=== PATIENT | female | born 1995 | race Caucasian/White ===

== ENCOUNTER → 2017-11-09 19:52 | Outpatient (CLI) | payer BC, SELFPAY ==
[2017-11-09 20:01] LABS: Microscopic, Urine URINE MICROSCOPIC (MICROSCOPIC)
[2017-11-09 20:30] LABS: Appearance,Urine CLOUDY (Clear); Bilirubin,Urine Negative (Negative); Blood, Urine Negative (Negative); Color,Urine YELLOW (Yellow); Glucose,Urine (UA) Negative (Negative); Ketones,Urine Negative (Negative); Leukocyte Esterase,Urine TRACE (Negative); Nitrate,Urine Negative (Negative); PH,Urine 7.5 (5.0-8.5); Protein,Urine Negative (Negative)
[2017-11-09 20:39] LABS: Basophils % 0.5 % (0.1-2.0); Eosinophils # 0.1 K/mm3 (0.0-0.4); Eosinophils % 1.7 % (0.1-12.0); Hematocrit 46.8 % (37.0-47.0); Hemoglobin 15.1 g/dL (12.2-16.2); Lymphocytes # 1.6 K/mm3 (0.7-4.5); Lymphocytes % 24.7 K/mm3 (10-50); Mean Corpuscular HGB Conc 32.4 g/dL (31.8-35.4); Mean Corpuscular Hemoglobin 32.7 pg (27.0-31.2); Mean Corpuscular Volume 101.1 fl (81-99); Mean Platelet Volume 9.3 fl (7.4-10.4); Monocytes # 0.4 K/mm3 (0.1-1.0); Monocytes % 6.6 % (1.7-9.3); Neutrophils # 4.4 K/mm3 (1.8-7.8); Neutrophils % 66.5 % (37.0-80.0); Platelet Count 272 K/mm3 (142-424); Red Blood Count 4.62 M/mm3 (4.20-5.40); Red Cell Distribution Width 13.8 % (11.5-17.5); White Blood Count 6.6 K/mm3 (4.5-13.0)
[2017-11-09 21:14] LABS: Erythrocyte Sedimentation Rate 6 mm/hr (0-20)
[2017-11-09 22:15] LABS: WBC,Urine Occasional #/hpf (0-3)
[2017-11-09 22:16] LABS: Amorphous Sediment,Urine 2+ /lpf; Bacteria,Urine 1+ /lpf
[2017-11-09 22:57] LABS: Alanine Aminotransferase 39 U/L (12-78); Albumin/Globulin Ratio 1.4 (1.1-1.8); Alkaline Phosphatase 65 U/L (46-116); Anion Gap 13.5 mEq/L (5-15); Aspartate Amino Transferase 15 U/L (15-37); Bilirubin,Total 0.3 mg/dL (0.2-1.0); Blood Urea Nitrogen 13 mg/dL (7-18); Calcium 8.7 mg/dL (8.5-10.1); Carbon Dioxide 28 mmol/L (21.0-32.0); Chloride 104 mmol/L (98-107); Creatinine,Serum 0.82 mg/dL (0.55-1.02); Estimated Glomerular Filt Rate 89 ml/min (>60); GFR (African American) 108 ML/MIN (>60); Globulin 2.8 gm/dl (1.3-3.2); Glucose 73 mg/dL (74-106); Potassium 4.5 mmoL/L (3.5-5.1); Sodium 141 mmol/L (136-145); Total Protein,Serum 6.8 gm/dL (6.4-8.2)
[2017-11-10 13:39] LABS: C-Reactive Protein < 0.2 mg/L (0.0-0.9)
== END ==
PROVIDERS: PCP Nurse Practitioner Family; Visit Provider Nurse Practitioner Family
DX: N39.0 Urinary tract infection, site not specified (principal); R52 Pain, unspecified
CPT/HCPCS: 36415; 80053; 81001; 85025; 85651; 86140; 86141

== ENCOUNTER 2018-01-09 14:27 | Emergency (ER) | payer BC, SELFPAY ==
[2018-01-09 14:38] VITALS: BP 132/103; PULSE 92; RESP 20; TEMP 36.6; O2SAT 97; BMI 38.0
--- NOTE | 2018-01-09 14:44 | HMH.EDUTC ---
[facility] [place] Disposition Clinical Impression: Viral upper respiratory illness Disposition: Home, Self-Care Condition on Discharge: Good Instructions: DI for Viral Upper Respiratory Infection -- Adult Additional Instructions: * No sign of bacterial infection. Likely viral. Virus can take 7-14 days to run their course * Nasal Saline to remove nasal drainage and help with nasal congestion. Hard to eat, drink, sleep with nasal congestion so important to keep nose cleaned out * Monitor Temp. FU if fever develops * Encourage fluids, water, gatorade, powerade, pedialyte if infant/toddler/child * warm salt water gargles * warm fluids * sore throat lozenges * sleep elevated * humidifier/vaporizer * STOP the [employer] brand cough medication if you rather take the bromfed. * Bromfed may cause drowsiness. Know how it effects you (or your child) before driving, caring for small children, or sending your child to school. No other antihistamines/allergy medications while taking bromfed. * * Your throat swab was sent for culture. Those results are typically sent to your primary care. Be sure to follow up in 2-3 days if no improvement so they can review those results and treat if necessary. If you don't have primary care, I recommend you get one but in the mean time, you will have to return to a walk in clinic. Prescriptions: Brompheniramine/Pseudoephed/Dm [Bromfed DM Cough Syrup 5mL] 10 ml PO QID PRN #240 ml PRN Reason: Cough Referrals: Anastasiia Baugh APRN [Primary Care Provider] - (Follow up IMMEDIATELY for new or worsening symptoms OR no noticeable improvement over the next 48-72 hours. 911 for difficulty breathing or swallowing.) Time of Disposition: 15:15 Medical Decision Making - Robin Inquiry Pt receiving controlled substance: No Vital Signs: 01/09/18 14:38 Temperature 97.9 F Temperature Source Temporal Artery Scan Pulse Rate [Brachial] 92 H Respiratory Rate 20 Blood Pressure [Right Arm] 132/103 Blood Pressure Mean [Right Arm] 112 Blood Pressure Position [Right Arm] Sitting 02 Sat by Pulse Oximetry 97 Oxygen Delivery Method Room Air - Lab Data Lab results reviewed: Yes: I reviewed the patient's lab results. Flu A neg Flu B neg Strep neg [facility] [place] HPI - General Stated complaint: sore throat cough Time Seen by Provider: 01/09/18 14:44 Mode of Arrival: Ambulatory Source of Information: Patient Limitations: No Limitations Description of Symptoms (Recalled from Triage Doc. by RN): RUNNY NOSE, COUGH, CHEST CONGESTION, SORE THROAT X 4 DAYS HEENT Symptoms (Recalled from RN notes): Yes Resp Symptoms (Recalled from RN notes): Yes Skin Symptoms (Recalled from RN notes): No MS Symptoms (Recalled from RN notes): No Functional Status (Recalled from RN notes): NA - History of Present Illness Provider Complaint: Here w/ mom due to cough, sore throat, nasal congestion. Started w/ rhinorrhea 5 days ago. Feeling better but reporting cough, ST and nasal congestion as bothersome . No fever, aches, chills. Unknown otc cough syrup from helped last night but made her too drowsy. Hasn't taken or tried anything else. No known sick contacts. - Related Data Home Medications Medication Instructions Recorded Confirmed norethindrone (contraceptive) 0.35 0.35 mg PO BID tab 10/30/17 mg tablet topiramate 25 mg tablet 50 mg PO BID 10/30/17 01/09/18 Previous Rx's Medication Instructions Recorded fluconazole 100 mg tablet 150 mg PO ONCE #1 tab 10/30/17 Brompheniramine/Pseudoephed/Dm 10 ml PO QID PRN #240 ml 01/09/18 [Bromfed DM Cough Syrup 5mL] Allergies Allergy/AdvReac Type Severity Reaction Status Date / Time amoxicillin [AMOXICILLIN] Allergy Unknown Unverified 10/03/17 15:05 cefixime [From SUPRAX] Allergy Unknown Unverified 10/03/17 15:05 latex [LATEX] Allergy Unknown Unverified 10/03/17 15:05 shellfish derived Allergy Unknown RASH/ITCHIN Unverified 10/03/17 15:05 [From SHELLFISH (FOOD/DRUG)] G shrimp [SHRIMP]
[2018-01-09 15:16] VITALS: BP 132/103; PULSE 92; RESP 20; TEMP 36.6; O2SAT 97
[2018-01-09 15:36] LABS: UTC Influenza A Antigen Negative (Negative); UTC Influenza B Antigen Negative (Negative); UTC Strep Screen (Rapid) Negative (Negative)
== END 2018-01-09 15:20 | disposition home or self-care (01) ==
PROVIDERS: Emergency Provider Nurse Practitioner Family; Family Provider Nurse Practitioner Family; PCP Nurse Practitioner Family
DX: J06.9 Acute upper respiratory infection, unspecified (principal); Z88.1 Allergy status to other antibiotic agents; Z91.040 Latex allergy status
CPT/HCPCS: 87804; 87880; 99202

== ENCOUNTER → 2018-01-24 15:47 | Outpatient (CLI) | payer BC, SELFPAY ==
[2018-01-24 18:56] LABS: HCG Qualitative, Serum Negative (Negative)
[2018-01-24 19:21] LABS: Free T4 (Free Thyroxine) 1.06 ng/dl (0.78-1.34); Thyroid Stimulating Hormone 2.31 uIU/ml (0.516-4.13)
[2018-01-26 10:15] LABS: Hep A Ab, IgM Negative (Negative); Hepatitis B Core Antibody IgM Negative (Negative); Hepatitis B Surface Antigen Negative (Negative)
[2018-01-26 17:41] LABS: HIV Screen 4th Generation wRfx Non Reactive (Non Reactive); Hepatitis C Antibody <0.1 s/co ratio (0.0-0.9); Rapid Plasma Reagin Ab Titer Non Reactive (NonRea<1:1)
[2018-01-26 17:42] LABS: HSV 2 IgG, Type Spec <0.91 index (0.00-0.90)
[2018-01-27 19:01] LABS: Neisseria gonorrhoeae, NAA Negative (Negative)
== END ==
PROVIDERS: Visit Provider Nurse Practitioner Family
DX: Z11.3 Encounter for screening for infections with a predominantly sexual mode of transmission (principal); F32.9 Major depressive disorder, single episode, unspecified; F41.9 Anxiety disorder, unspecified
CPT/HCPCS: 80074; 84439; 84443; 84703; 86592; 86695; 86703; 86790; 87491; 87591; G0432

== ENCOUNTER → 2018-02-15 15:28 | Outpatient (CLI) | payer BC, OTHER, SELFPAY ==
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
== END ==
PROVIDERS: PCP Nurse Practitioner Family; Visit Provider Nurse Practitioner Family
DX: S70.12XA Contusion of left thigh, initial encounter (principal); M79.605 Pain in left leg; V49.9XXA Car occupant (driver) (passenger) injured in unspecified traffic accident, initial encounter; Z86.718 Personal history of other venous thrombosis and embolism
CPT/HCPCS: 93970

== ENCOUNTER → 2018-03-29 14:59 | Outpatient (REF) | payer BC, SELFPAY ==
[2018-03-29 18:46] LABS: Amphetamine/Metha Screen,Urine Negative ng/mL (<1000); Barbiturates Screen,Urine Negative ng/mL (<200); Benzodiazepines Screen,Urine Negative ng/mL (200); Cannabinoid Screen,Urine Positive ng/mL (<50); Cocaine Screen,Urine Negative ng/g (<300); Methadone Screen,Urine Negative ng/mL (<300); Opiate Screen,Urine Negative ng/mL (<300); Phencyclidine Screen,Urine Negative ng/mL (<25)
== END ==
LOC: LAB 14:59
PROVIDERS: Visit Provider Nurse Practitioner Family
DX: Z79.899 Other long term (current) drug therapy (principal)
CPT/HCPCS: 80305

== ENCOUNTER 2018-04-16 13:57 | Outpatient (RCR) | payer OTHER, BC, SELFPAY ==
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
== END 2018-04-16 13:58 | disposition home or self-care (01) ==
LOC: PT 13:57
PROVIDERS: Family Provider Nurse Practitioner Family; PCP Emergency Medicine; Visit Provider Nurse Practitioner Family
DX: I89.0 Lymphedema, not elsewhere classified (principal); T14.8XXA Other injury of unspecified body region, initial encounter
CPT/HCPCS: 97140; 97162

== ENCOUNTER → 2019-05-07 17:40 | Outpatient (CLI) | payer BC, SELFPAY ==
--- NOTE | 2019-05-07 17:48 | XR_ITS ---
XR chest 2V HISTORY: ITS.REASON: tb screening ORDERING PHYSICIAN: Rupal Beverly APRN PATIENT AGE: 23 years COMPARISON: 02/27/2015. FINDINGS: The cardiomediastinal silhouette and pulmonary vascularity are within normal limits. The lungs are clear without infiltrates, suspicious nodules, or pleural effusions. No acute bony abnormalities. IMPRESSION: Negative chest, no acute finding
== END ==
PROVIDERS: PCP Nurse Practitioner Family; Visit Provider Nurse Practitioner Family
DX: Z00.00 Encounter for general adult medical examination without abnormal findings (principal)
CPT/HCPCS: 71046

== ENCOUNTER → 2020-05-01 17:04 | Outpatient (CLI) | payer BC, SELFPAY ==
[2020-05-01 18:07] LABS: Alanine Aminotransferase 24 U/L (12-78); Albumin Level 4.3 g/dl (3.5-5.0); Albumin/Globulin Ratio 1.6 (1.1-1.8); Alkaline Phosphatase 62 U/L (38-126); Anion Gap 12.7 mEq/L (5-15); Aspartate Amino Transferase 24 U/L (14-36); Basophils % 0.4 % (0.1-2.0); Bilirubin,Total 0.5 mg/dl (0.2-1.3); Blood Urea Nitrogen 9 mg/dl (7-17); Calcium 9.3 mg/dl (8.4-10.2); Carbon Dioxide 24 mmol/L (22.0-30.0); Chloride 108 mmol/L (98-107); Chol/HDL Ratio 2.6 (1-3.5); Cholesterol 166 mg/dl (140-200); Eosinophils # 0.1 K/mm3 (0.0-0.4); Eosinophils % 1.5 % (0.1-12.0); Estimated Glomerular Filt Rate 90 ml/min (>60); GFR (African American) 109 ML/MIN (>60); Globulin 2.7 g/dL (1.3-3.2); Glucose 99 mg/dl (74-100); HDL Cholesterol 64 mg/dl (40-60); Hematocrit 45.8 % (37.0-47.0); Hemoglobin 15.7 g/dL (12.2-16.2); Lymphocytes # 1.2 K/mm3 (0.7-4.5); Lymphocytes % 20.7 % (10-50); Mean Corpuscular HGB Conc 34.2 g/dL (31.8-35.4); Mean Corpuscular Hemoglobin 34.3 pg (27.0-31.2); Mean Corpuscular Volume 100.2 fl (81-99); Mean Platelet Volume 9.1 fl (7.4-10.4); Monocytes # 0.3 K/mm3 (0.1-1.0); Monocytes % 5.7 % (1.7-9.3); Neutrophils % 71.6 % (37.0-80.0); Platelet Count 281 K/mm3 (142-424); Potassium 4.7 mmoL/L (3.5-5.1); Red Blood Count 4.57 M/mm3 (4.20-5.40); Red Cell Distribution Width 13.9 % (11.5-17.5); Sodium 140 mmol/L (136-145); Triglycerides 78 mg/dl (30-150); VLDL Cholesterol 16 mg/dL (0-40); White Blood Count 5.6 K/mm3 (4.8-10.8)
[2020-05-01 18:19] LABS: Direct LDL Cholesterol 98.48 mg/dL (100-129)
[2020-05-01 18:25] LABS: T4 (Thyroxine) 8.1 ug/dl (5.53-11.0)
[2020-05-01 18:38] LABS: Thyroid Stimulating Hormone 1.36 uIU/mL (0.465-4.68)
[2020-05-01 18:40] LABS: Hemoglobin A1C 4.8 % (4.0-6.0)
[2020-05-03 10:02] LABS: Vitamin B12 346 pg/mL (232-1245)
[2020-05-07 12:32] LABS: 1,25 Dihydroxy Vitamin D 41 pg/mL (.); 1,25-Dihydroxy, Vitamin D-2 <10 pg/mL (.); 1,25-Dihydroxy, Vitamin D-3 41 pg/mL (.)
== END ==
PROVIDERS: Visit Provider Nurse Practitioner Family
DX: R53.83 Other fatigue (principal); E66.9 Obesity, unspecified
CPT/HCPCS: 80053; 80061; 82607; 82652; 83036; 84436; 84443; 85025

== ENCOUNTER 2020-09-25 12:31 | Emergency (ER) | payer BC, SELFPAY ==
[2020-09-25 12:35] VITALS: BP 152/92; PULSE 105; RESP 20; TEMP 36.9; O2SAT 98; BMI 44.9
--- NOTE | 2020-09-25 13:12 | HMH.EDUTC ---
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 Take tylenol for pain or fever. Return if you begin to have difficulty breathing. Follow up with your regular doctor. GO TO THE ER FOR ANY WORSENING SYMPTOMS Prescriptions: Cefdinir [Omnicef 300mg Capsule] 300 mg PO BID #20 cap Transmission Status: Received by [facility] predniSONE [Prednisone 20mg Tab] 20 mg PO BID 3 Days #6 tab Transmission Status: Received by [facility] Referrals: Waylon Gillespie MD [Primary Care Provider] - Forms: Work/School Release Time of Disposition: 13:30 Medical Decision Making - Medical Records Medical records reviewed: No: I reviewed the patient's medical records. - Robin Inquiry Pt receiving controlled substance: No Vital Signs: 09/25/20 12:35 09/25/20 13:34 Temperature 98.5 F 98.5 F Temperature Source Oral Pulse Rate 105 H Pulse Rate [Right Brachial] 105 H Respiratory Rate 20 20 Blood Pressure 152/92 H Blood Pressure [Right Arm] 152/92 H Blood Pressure Mean [Right Arm] 112 Blood Pressure Source [Right Arm] Automatic Cuff Blood Pressure Position [Right Arm] Sitting 02 Sat by Pulse Oximetry 98 Oxygen Delivery Method Room Air Orders (Tests/Meds): ED MEDICATIONS Discontinued Medications Generic Name Dose Route Start Last Admin Trade Name Freq PRN Reason Stop Dose Admin Ceftriaxone Sodium 1 gm 09/25/20 13:26 09/25/20 13:33 Ceftriaxone 1gm Vial IM 09/25/20 13:27 1 gm ONCE ONE Administration Protocol Ketorolac Tromethamine 60 mg 09/25/20 13:22 09/25/20 13:33 Ketorolac 60mg/2ml Vial IM 09/25/20 13:23 60 mg ONCE ONE Administration Lidocaine HCl 0 ml 09/25/20 13:26 09/25/20 13:33 Lidocaine 1% 5ml Pf Vial IM 09/25/20 13:27 2.1 ml ONCE ONE Administration [facility] [place] HPI - General Stated complaint: ear pain Time Seen by Provider: 09/25/20 13:13 Mode of Arrival: Ambulatory Source of Information: Patient, Parent(s) Limitations: No Limitations Description of Symptoms (Recalled from Triage Doc. by RN): PATIENT C/O RIGHT EAR PAIN SINCE THIS MORNING THAT RADIATES THROUGH HER JAW AND NECK. SHE REPORTS HAVING EAR TUBES PLACED IN NOVEMBER. ON MONDAY SHE GOT FLUID IN HER EAR AND FELT A POP ; EAR HAS BEEN ACHING SINCE THEN, BUT PAIN WAS A LOT WORSE THIS MORNING. ALSO STATES THERE WAS PINK/ORANGE FLUID FROM EAR WHEN SHE PUT A Q-TIP IN IT TODAY HEENT Symptoms (Recalled from RN notes): Yes Resp Symptoms (Recalled from RN notes): No Skin Symptoms (Recalled from RN notes): No MS Symptoms (Recalled from RN notes): No Functional Status (Recalled from RN notes): WNL - History of Present Illness Provider Complaint: She c/o 2 days of worsening right ear pain. - Related Data Home Medications Medication Instructions Recorded Confirmed etonogestrel 68 mg subdermal SUBDERMAL each 06/28/19 09/24/20 implant norethindrone acetate 5 mg tablet 5 mg PO DAILY tab 05/01/20 09/24/20 galcanezumab-gnlm 120 mg/mL mg SQ 07/10/20 09/24/20 subcutaneous pen injector metoclopramide HCl 10 mg tablet PO 07/10/20 09/24/20 Phentermine HCl 37.5 mg PO DAILY 09/25/20 09/25/20 Sertraline HCl [Zoloft] 100 mg PO DAILY 09/25/20 09/25/20 Previous Rx's Medication Instructions Recorded Cefdinir [Omnicef 300mg Capsule] 300 mg PO BID #20 cap 09/25/20 predniSONE [Prednisone 20mg 20 mg PO BID 3 Days #6 tab 09/25/20 Tab] Allergies Allergy/AdvReac Type Severity Reaction Status Date / Time amoxicillin [AMOXICILLIN] Allergy Unknown Verified 09/24/20 15:28 cefixime [From SUPRAX] Allergy Unk
[2020-09-25 13:34] VITALS: BP 152/92; PULSE 105; RESP 20; TEMP 36.9; O2SAT 98
== END 2020-09-25 13:46 | disposition home or self-care (01) ==
PROVIDERS: Emergency Provider Nurse Practitioner Family; PCP Emergency Medicine
DX: H66.13 Chronic tubotympanic suppurative otitis media, bilateral (principal); F41.9 Anxiety disorder, unspecified; Z79.899 Other long term (current) drug therapy
CPT/HCPCS: 96372; 99201

== ENCOUNTER → 2020-10-02 15:23 | Outpatient (CLI) | payer BC, SELFPAY ==
--- NOTE | 2020-10-02 15:29 | CA_ITS ---
APPROVED REPORT Left Lower Extremity Venous Study for DVT. Insurance Claims Adjuster: DIMA DoughertyT Indications Lower Extremity Pain: Left Lower Extremity Edema: Left DVT of Lower Extremity: PAIN,TIGHTNESS LT ANKLE,PRIOR DVT Risk Factors Prior Phlebitis/DVT Obesity Past History DVT : Vein Imaging CFV (L): compressive, spontaneous, phasic, augmentation FEM (L): compressive, spontaneous, phasic, augmentation POP (L): compressive, spontaneous, phasic, augmentation PTV (L): Non-Compressible, Thrombus GSV (L): Non-Compressible, Thrombus Peroneals (L):Compressible GAS (L): Compressible Findings Study suggests a DVT in the distal posterior tibial vein. Other deep veins are negative. Study suggests a SVT of the distal GSV. Critical Notification Critical Value: Yes Physician Notified Date: 10/02/2020 Time: 16:19 Physician Name: Lisset Lloyd Electronically signed by : Pantera Huston MD 10/06/2020 10:53:09
== END ==
PROVIDERS: PCP Nurse Practitioner Family; Visit Provider Nurse Practitioner Family
DX: M79.605 Pain in left leg (principal)
CPT/HCPCS: 93971

== ENCOUNTER → 2021-07-21 17:59 | Outpatient (CLI) | payer BC, SELFPAY ==
[2021-07-21 19:05] LABS: Alanine Aminotransferase 41 U/L (12-78); Albumin Level 3.7 g/dl (3.5-5.0); Albumin/Globulin Ratio 1.5 (1.1-1.8); Alkaline Phosphatase 69 U/L (38-126); Anion Gap 8.4 mEq/L (5-15); Aspartate Amino Transferase 34 U/L (14-36); Bilirubin,Total 0.3 mg/dl (0.2-1.3); Blood Urea Nitrogen 9 mg/dl (7-17); Calcium 8.7 mg/dl (8.4-10.2); Carbon Dioxide 27 mmol/L (22.0-30.0); Chloride 108 mmol/L (98-107); Cholesterol 181 mg/dl (140-200); Estimated Glomerular Filt Rate 124 ml/min (>60); GFR (African American) 150 ML/MIN (>60); Globulin 2.5 g/dL (1.3-3.2); Glucose 102 mg/dl (74-100); HDL Cholesterol 61 mg/dl (40-60); Potassium 4.4 mmoL/L (3.5-5.1); Sodium 139 mmol/L (136-145); Total Protein,Serum 6.2 g/dl (6.3-8.2); Triglycerides 125 mg/dl (30-150); VLDL Cholesterol 25 mg/dL (0-40)
[2021-07-21 19:07] LABS: Basophils % 0.7 % (0.1-2.0); Eosinophils # 0.1 K/mm3 (0.0-0.4); Eosinophils % 2.4 % (0.1-12.0); Hematocrit 44.1 % (37.0-47.0); Hemoglobin 14.5 g/dL (12.2-16.2); Lymphocytes # 1.4 K/mm3 (0.7-4.5); Lymphocytes % 24.6 % (10-50); Mean Corpuscular HGB Conc 32.9 g/dL (31.8-35.4); Mean Corpuscular Hemoglobin 33.7 pg (27.0-31.2); Mean Corpuscular Volume 102.3 fl (81-99); Mean Platelet Volume 10.2 fl (7.4-10.4); Monocytes # 0.3 K/mm3 (0.1-1.0); Monocytes % 4.5 % (1.7-9.3); Neutrophils # 3.7 K/mm3 (1.8-7.8); Neutrophils % 67.7 % (37.0-80.0); Platelet Count 293 K/mm3 (142-424); Red Blood Count 4.31 M/mm3 (4.20-5.40); Red Cell Distribution Width 13.9 % (11.5-17.5); White Blood Count 5.5 K/mm3 (4.8-10.8)
[2021-07-21 19:17] LABS: Direct LDL Cholesterol 89.59 mg/dL (100-129)
[2021-07-21 19:22] LABS: 25-OH Vitamin D, Total 17.5 ng/mL (30-100)
[2021-07-21 19:23] LABS: T4 (Thyroxine) 7.3 ug/dl (5.53-11.0)
[2021-07-21 19:36] LABS: Thyroid Stimulating Hormone 5.92 uIU/mL (0.465-4.68)
== END ==
PROVIDERS: Visit Provider Nurse Practitioner Family
DX: E66.01 Morbid (severe) obesity due to excess calories (principal); Z68.43 Body mass index [BMI] 50.0-59.9, adult; Z79.899 Other long term (current) drug therapy; E55.9 Vitamin D deficiency, unspecified
CPT/HCPCS: 80053; 80061; 82306; 84436; 84443; 85025

== ENCOUNTER 2021-10-11 16:57 | Emergency (ER) | payer BC, SELFPAY ==
[2021-10-11 18:20] VITALS: BP 146/92; PULSE 89; RESP 19; TEMP 36.9; O2SAT 98; BMI 50.3
--- NOTE | 2021-10-11 19:11 | HMH.EDUTC ---
[facility] [place] Disposition Clinical Impression: Viral syndrome Disposition: Home, Self-Care Condition on Discharge: Good Instructions: DI for Headache, Nausea and Vomiting-Adult Additional Instructions: *Monitor Temp, Over the counter Motrin or Tylenol as directed/as needed Tylenol every 4 hours and Motrin every 6 hours (as long as your family doctor has told you that you can take it) for fever or pain. and straight to ER if unable to lower temp less than 101.0 after medication given *Warm salt water gargles may help to soothe the throat *Throat Lozenges *Warm fluids like tea with honey may help to soothe the throat *Sleep elevated *Humidifier/Vaporizer You were tested for today for COVID19 your test result should be back in the next 24-48 hours, you may check for your results on the [facility] My Health Portal if you have trouble logging on or seeing your results you may call You was given a handout with instructions for Self Quarantine and Self isolation for while you wait on test results and what to do if they are positive If you are positive the Health Dept will be contacting you also Make sure to take your Vitamins Vit. C Vit D and Zinc if you can take them Follow up IMMEDIATELY for new or worsening symptoms or no Noticeable improvement over the next 48-72 hours. 911 for difficulty breathing or swallowing Prescriptions: Ondansetron [Zofran 4mg ODT] 4 mg PO TIDP PRN #12 tab PRN Reason: Vomiting Transmission Status: Pending to [facility] Referrals: Anastasiia Baugh APRN [Primary Care Provider] - As needed Forms: Work/School Release Time of Disposition: 19:27 Medical Decision Making - Robin Inquiry Pt receiving controlled substance: No Robin was queried for this patient: No Vital Signs: 10/11/21 18:20 Temperature 98.4 F Temperature Source Oral Pulse Rate [Right Brachial] 89 Respiratory Rate 19 Blood Pressure [Right Arm] 146/92 H Blood Pressure Mean [Right Arm] 110 Blood Pressure Source [Right Arm] Automatic Cuff Blood Pressure Position [Right Arm] Sitting 02 Sat by Pulse Oximetry 98 Oxygen Delivery Method Room Air - Lab Data Lab results reviewed: Yes: I reviewed the patient's lab results. Lab Results 10/11/21 19:15: Strep Scn Rapid Clinic Negative Orders (Tests/Meds): ORDERS Category Date Time Status Strep Screen Confirmation Stat Micro 10/11/21 19:15 Received [facility] [place] HPI - General Stated complaint: nausea, vomiting, headache Time Seen by Provider: 10/11/21 19:11 Mode of Arrival: Ambulatory Source of Information: Patient Limitations: No Limitations Description of Symptoms (Recalled from Triage Doc. by RN): PATIENT C/O NAUSEA, VOMITING AND HEADCHE X 3 DAYS HEENT Symptoms (Recalled from RN notes): Yes Resp Symptoms (Recalled from RN notes): No Skin Symptoms (Recalled from RN notes): No MS Symptoms (Recalled from RN notes): No Functional Status (Recalled from RN notes): WNL - History of Present Illness Provider Complaint: Patient states that she has been having scratchy throat, headache, N/V for about 3 days States today she was feeling worse so she came in to get checked - Related Data Home Medications Medication Instructions Recorded Confirmed etonogestrel 68 mg subdermal SUBDERMAL each 06/28/19 09/01/21 implant norethindrone acetate 5 mg tablet 5 mg PO DAILY tab 05/01/20 09/01/21 galcanezumab-gnlm 120 mg/mL mg SQ 07/10/20 09/01/21 subcutaneous pen injector metoclopramide HCl 10 mg tablet PO 07/10/20 09/01/21 Sertraline HCl [Zoloft] 100 mg PO DAILY 09/25/20 09/01/21 Previous Rx's Medication Instructions Recorded rivaroxaban 15 mg tablet 15 mg PO BID 21 Days #42 tab 10/02/20 rivaroxaban 20 mg tablet 20 mg PO DAILY #30 tab 10/02/20 ondansetron 8 mg disintegrating 8 mg PO Q8H PRN 5 Days #10 tab 10/12/20 tablet cholecalciferol (vitamin D3) 1,250 1,250 mcg PO WEEKLY #7 tab 07/26/21 mcg (50,000 unit) tablet cholecalciferol (vitamin D3) 50 50 mcg PO DAILY 30 Da
[2021-10-11 19:27] LABS: UTC Strep Screen (Rapid) Negative (Negative)
[2021-10-11 19:29] VITALS: BP 146/92; PULSE 89; RESP 19; TEMP 36.9; O2SAT 98
[2021-10-11 19:36] LABS: Adenovirus,PCR Not Detected (NotDetected); Bordetella Pertussis Not Detected (NotDetected); Chlamydophila Pneumoniae, PCR Not Detected (NotDetected); Coronavirus 19, PCR Not Detected (NotDetected); Coronavirus 229E Not Detected (NotDetected); Coronavirus NL63 Not Detected (NotDetected); Coronavirus OC43 Not Detected (NotDetected); Coronovirus HKU1,PCR Not Detected (NotDetected); Human Metapneumovirus Not Detected (NotDetected); Influenza A, PCR Not Detected (NotDetected); Influenza AH1, 2009 Not Detected (NotDetected); Influenza AH1, PCR Not Detected (NotDetected); Influenza AH3,PCR Not Detected (NotDetected); Influenza B, PCR Not Detected (NotDetected); Mycoplasma Pneumoniae, PCR Not Detected (NotDetected); Parainfluenza 1, PCR Not Detected (NotDetected); Parainfluenza 2, PCR Not Detected (NotDetected); Parainfluenza 3, PCR Not Detected (NotDetected); Parainfluenza 4, PCR Not Detected (NotDetected); Respiratory Syncytial Virus Not Detected (NotDetected); Rhinovirus/Enterovirus Not Detected (NotDetected)
== END 2021-10-11 19:34 | disposition home or self-care (01) ==
PROVIDERS: Emergency Provider Nurse Practitioner; PCP Nurse Practitioner Family
DX: B34.9 Viral infection, unspecified (principal); Z20.822 Contact with and (suspected) exposure to COVID-19; F41.9 Anxiety disorder, unspecified
CPT/HCPCS: 87581; 87632; 87798; 87880; 99203; C9803; G0463; U0003; U0005

== ENCOUNTER → 2021-11-04 16:26 | Outpatient (CLI) | payer BC, SELFPAY | PROVIDERS: Visit Provider Nurse Practitioner | DX: Z20.822 Contact with and (suspected) exposure to COVID-19 (principal) | CPT/HCPCS: C9803; U0003; U0005 ==

== ENCOUNTER 2021-11-08 09:21 | Emergency (ER) | payer BC, SELFPAY ==
[2021-11-08 12:52] VITALS: BP 219/110; PULSE 111; RESP 18; TEMP 36.8; O2SAT 100; BMI 52.1
--- NOTE | 2021-11-08 12:57 | HMH.EDUTC ---
[facility] [place] Disposition Clinical Impression: Migraine Qualifiers: Migraine type: unspecified Status migrainosus presence: without status migrainosus Intractability: not intractable Qualified Code(s): G43.909 - Migraine, unspecified, not intractable, without status migrainosus Disposition: Home, Self-Care Condition on Discharge: Good Instructions: Migraine -- Adult, DI for Migraine Additional Instructions: Go home and rest. Resume your oral medications as directed. Follow up with your regular doctor. GO TO THE ER FOR ANY WORSENING SYMPTOMS OR CONCERN, ESPECIALLY BOWEL OR BLADDER ISSUES, SADDLE AREA NUMBNESS, FEVER, ETC Prescriptions: Promethazine HCl [Phenergan 25mg tab] 25 mg PO Q6H PRN #15 tab PRN Reason: Nausea And Vomiting Transmission Status: Received by [facility] Referrals: Anastasiia Baugh APRN [Primary Care Provider] - Forms: Work/School Release Time of Disposition: 13:36 Medical Decision Making - Medical Records Medical records reviewed: No: I reviewed the patient's medical records. - Robin Inquiry Pt receiving controlled substance: No Vital Signs: 11/08/21 12:52 11/08/21 14:16 Temperature 98.2 F 98.2 F Temperature Source Oral Pulse Rate 90 Pulse Rate [Left] 111 H Respiratory Rate 18 18 Blood Pressure 157/85 H Blood Pressure [Right Arm] 219/110 H Blood Pressure Mean [Right Arm] 146 02 Sat by Pulse Oximetry 100 - Lab Data Lab results reviewed: Yes: I reviewed the patient's lab results. Lab Results 11/08/21 13:02: Influenza Type A Ag Negative, Influenza Type B Ag Negative Orders (Tests/Meds): ED MEDICATIONS Discontinued Medications Generic Name Dose Route Start Last Admin Trade Name Freq PRN Reason Stop Dose Admin Ketorolac Tromethamine 60 mg 11/08/21 13:12 11/08/21 13:19 Ketorolac 60mg/2ml Vial IM 11/08/21 13:13 60 mg ONCE ONE Administration Methylprednisolone Sodium Succinate 125 mg 11/08/21 13:12 11/08/21 13:19 Methylprednisolone Sod Succ 125mg Vial IM 11/08/21 13:13 125 mg ONCE ONE Administration Promethazine HCl 25 mg 11/08/21 13:14 11/08/21 13:19 Promethazine Hcl 25mg/Ml 1ml Vial IM 11/08/21 13:15 25 mg ONCE ONE Administration [facility] [place] HPI - General Stated complaint: migraine Time Seen by Provider: 11/08/21 12:57 - History of Present Illness Provider Complaint: She states that she has had a migraine headache for the past 2 days. She states that her current symptoms are worse than her normal migraine symptoms, but it feels essentially like a migraine to her. She denies that this is the worst headache of her life. - Related Data Home Medications Medication Instructions Recorded Confirmed etonogestrel 68 mg subdermal SUBDERMAL each 06/28/19 10/13/21 implant norethindrone acetate 5 mg tablet 5 mg PO DAILY tab 05/01/20 10/13/21 galcanezumab-gnlm 120 mg/mL mg SQ 07/10/20 10/13/21 subcutaneous pen injector metoclopramide HCl 10 mg tablet PO 07/10/20 10/13/21 Sertraline HCl [Zoloft] 100 mg PO DAILY 09/25/20 10/13/21 Previous Rx's Medication Instructions Recorded rivaroxaban 15 mg tablet 15 mg PO BID 21 Days #42 tab 10/02/20 rivaroxaban 20 mg tablet 20 mg PO DAILY #30 tab 10/02/20 cholecalciferol (vitamin D3) 1,250 1,250 mcg PO WEEKLY #7 tab 07/26/21 mcg (50,000 unit) tablet cholecalciferol (vitamin D3) 50 50 mcg PO DAILY 30 Days #30 cap 07/26/21 mcg (2,000 unit) capsule Ondansetron [Zofran 4mg ODT] 4 mg PO TIDP PRN #12 tab 10/11/21 phentermine 37.5 mg tablet 37.5 mg PO DAILY #30 tab 10/13/21 Promethazine HCl [Phenergan 25mg 25 mg PO Q6H PRN #15 tab 11/08/21 tab] Allergies Allergy/AdvReac Type Severity Reaction Status Date / Time amoxicillin [AMOXICILLIN] Allergy Unknown Verified 10/13/21 15:13 cefixime [From SUPRAX] Allergy Unknown Verified 10/13/21 15:13 latex [LATEX] Allergy Unknown Verified 10/13/21 15:13 shellfish derived Allergy Unknown RASH/ITCHIN Verif
[2021-11-08 13:02] LABS: UTC Influenza A Antigen Negative (Negative)
[2021-11-08 13:03] LABS: UTC Influenza B Antigen Negative (Negative)
[2021-11-08 14:16] VITALS: BP 157/85; PULSE 90; RESP 18; TEMP 36.8
== END 2021-11-08 14:18 | disposition home or self-care (01) ==
PROVIDERS: Emergency Provider Nurse Practitioner Family; PCP Nurse Practitioner Family
DX: G43.909 Migraine, unspecified, not intractable, without status migrainosus (principal); F41.9 Anxiety disorder, unspecified; Z20.822 Contact with and (suspected) exposure to COVID-19; Z91.040 Latex allergy status; Z79.899 Other long term (current) drug therapy
CPT/HCPCS: 87804; 96372; 99202; C9803; G0463; U0003; U0005

== ENCOUNTER 2021-11-13 12:54 | Emergency (ER) | payer BC, SELFPAY ==
[2021-11-13 13:10] VITALS: BP 161/114; PULSE 123; RESP 20; TEMP 36.9; O2SAT 98; BMI 52.1
[2021-11-13 13:28] LABS: UTC Strep Screen (Rapid) Negative (Negative)
--- NOTE | 2021-11-13 13:30 | HMH.EDUTC ---
[facility] [place] Disposition Clinical Impression: Exposure to COVID-19 virus Pharyngitis Qualifiers: Pharyngitis/tonsillitis etiology: unspecified etiology Qualified Code(s): J02.9 - Acute pharyngitis, unspecified Sinusitis Qualifiers: Sinusitis location: unspecified location Chronicity: acute Recurrence: non-recurrent Qualified Code(s): J01.90 - Acute sinusitis, unspecified Disposition: Home, Self-Care Condition on Discharge: Good Instructions: DI for Pharyngitis/Tonsillopharyngitis -- Adult, DI for Sinusitis, DI for COVID-19 (Suspected or Confirmed ), Preventing the Spread of Coronavirus Discharge Instructions Additional Instructions: Drink plenty of fluids. Take tylenol or ibuprofen for pain or fever. Take the medications as directed. Follow up with your regular doctor. GO TO THE ER FOR ANY WORSENING SYMPTOMS Quarantine until you know the results of your covid-19 test. Notify your school or workplace of your results and follow their instructions regarding return to work/school. Don't start the oral steroids until tomorrow, since you had the shot here today. Follow up with your primary care physician regarding your elevated blood pressure. It was high at your last visit too. Prescriptions: Benzonatate [Benzonatate 100mg cap] 100 mg PO TIDP PRN #30 cap PRN Reason: Cough Transmission Status: Received by [facility] methylPREDNISolone [Medrol] 4 mg PO DIRECTED 6 Days #21 packet Transmission Status: Received by [facility] guaiFENesin [Mucinex 600mg tablet] 1 - 2 tab PO BIDP PRN #30 tab PRN Reason: Congestion Transmission Status: Received by [facility] Azithromycin [Z-Mateo 250mg Tab*] 250 mg PO UD DOSE PK #6 tab Transmission Status: Received by [facility] Referrals: Anastasiia Baugh APRN [Primary Care Provider] - Forms: Work/School Release Time of Disposition: 14:05 Medical Decision Making - Medical Records Medical records reviewed: No: I reviewed the patient's medical records. - Robin Inquiry Pt receiving controlled substance: No Vital Signs: 11/13/21 13:10 11/13/21 14:44 Temperature 98.5 F 98.5 F Temperature Source Oral Pulse Rate 123 H Pulse Rate [Left] 123 H Respiratory Rate 20 20 Blood Pressure 161/114 H Blood Pressure [Right Arm] 161/114 H Blood Pressure Mean [Right Arm] 129 02 Sat by Pulse Oximetry 98 - Lab Data Lab results reviewed: Yes: I reviewed the patient's lab results. Lab Results 11/13/21 13:22: Strep Scn Rapid Clinic Negative 11/13/21 14:24: Chlamy pneumoniae PCR Not detected, Adenovirus (PCR) Not detected, B. pertussis DNA (PCR) Not detected, Coronavirus OC43 (PCR) Not detected, Coronavirus HKU1 (PCR) Not detected, Coronavirus 229E (PCR) Not detected, SARS-CoV-2 (PCR) Detected A, Coronavirus NL63 (PCR) Not detected, Human Metapneumovir PCR Not detected, Influenza A (H1) PCR Not detected, Influ A (H1N1/09) PCR Not detected, Influenza A (H3) PCR Not detected, Influenza Type A (PCR) Not detected, Influenza Type B (PCR) Not detected, M. pneumoniae (PCR) Not detected, Parainfluenza 1 (PCR) Not detected, Parainfluenza 2 (PCR) Not detected, Parainfluenza 3 (PCR) Not detected, Parainfluenza 4 (PCR) Not detected, RSV (PCR) Not detected, Entero/Rhino (PCR) Not detected Orders (Tests/Meds): ED MEDICATIONS Discontinued Medications Generic Name Dose Route Start Last Admin Trade Name Freq PRN Reason Stop Dose Admin Dexamethasone Sodium Phosphate 8 mg 11/13/21 14:08 11/13/21 14:39 Dexamethasone 4mg/Ml 1ml Vial IM 11/13/21 14:09 8 mg ONCE ONE Administration ORDERS Category Date Time Status Strep Screen Confirmation Stat Micro 11/13/21 13:22 Received [facility] [place] HPI - General Stated complaint: sore throat,cough,congestion Time Seen by Provider: 11/13/21 13:30 Mode of Arrival: Ambulatory Source of Information: Patient Limitations: No Limitations Description of Symptoms (Recalled from Triage Doc.
[2021-11-13 14:42] LABS: Adenovirus,PCR Not Detected (NotDetected); Bordetella Pertussis Not Detected (NotDetected); Chlamydophila Pneumoniae, PCR Not Detected (NotDetected); Coronavirus 229E Not Detected (NotDetected); Coronavirus NL63 Not Detected (NotDetected); Coronavirus OC43 Not Detected (NotDetected); Coronovirus HKU1,PCR Not Detected (NotDetected); Human Metapneumovirus Not Detected (NotDetected); Influenza A, PCR Not Detected (NotDetected); Influenza AH1, 2009 Not Detected (NotDetected); Influenza AH1, PCR Not Detected (NotDetected); Influenza AH3,PCR Not Detected (NotDetected); Influenza B, PCR Not Detected (NotDetected); Mycoplasma Pneumoniae, PCR Not Detected (NotDetected); Parainfluenza 1, PCR Not Detected (NotDetected); Parainfluenza 2, PCR Not Detected (NotDetected); Parainfluenza 3, PCR Not Detected (NotDetected); Parainfluenza 4, PCR Not Detected (NotDetected); Respiratory Syncytial Virus Not Detected (NotDetected); Rhinovirus/Enterovirus Not Detected (NotDetected)
[2021-11-13 14:44] VITALS: BP 161/114; PULSE 123; RESP 20; TEMP 36.9
[2021-11-13 16:01] LABS: Coronavirus 19, PCR Detected (NotDetected)
== END 2021-11-13 14:45 | disposition home or self-care (01) ==
PROVIDERS: Emergency Provider Nurse Practitioner Family; PCP Nurse Practitioner Family
DX: U07.1 COVID-19 (principal); J01.90 Acute sinusitis, unspecified; F41.9 Anxiety disorder, unspecified
CPT/HCPCS: 87581; 87632; 87798; 87880; 96372; 99202; C9803; G0463; U0003; U0005

== ENCOUNTER 2022-01-14 17:27 | Emergency (ER) | payer BC, SELFPAY ==
[2022-01-14 17:40] VITALS: BP 133/89; PULSE 90; RESP 17; TEMP 37.1; O2SAT 98; BMI 44.9
--- NOTE | 2022-01-14 18:33 | HMH.EDUTC ---
[facility] [place] Disposition Clinical Impression: Migraine Qualifiers: Migraine type: unspecified Status migrainosus presence: without status migrainosus Intractability: not intractable Qualified Code(s): G43.909 - Migraine, unspecified, not intractable, without status migrainosus Disposition: Home, Self-Care Condition on Discharge: Good Instructions: Migraine -- Adult, DI for Migraine Additional Instructions: Go home lay down and sleep off remainder of migraine headache Return if needed Straight to ER if any life threatening symptoms Referrals: Anastaisia Baugh APRN [Primary Care Provider] - As needed Forms: Work/School Release Time of Disposition: 19:15 Medical Decision Making - Robin Inquiry Pt receiving controlled substance: No Robin was queried for this patient: No Vital Signs: 01/14/22 17:40 01/14/22 19:02 Temperature 98.8 F 98.8 F Temperature Source Oral Pulse Rate 90 Pulse Rate [Right Brachial] 90 Respiratory Rate 17 17 Blood Pressure 133/89 Blood Pressure [Right Arm] 133/89 Blood Pressure Mean [Right Arm] 103 Blood Pressure Source [Right Arm] Automatic Cuff Blood Pressure Position [Right Arm] Sitting 02 Sat by Pulse Oximetry 98 Oxygen Delivery Method Room Air Orders (Tests/Meds): ED MEDICATIONS Discontinued Medications Generic Name Dose Route Start Last Admin Trade Name Freq PRN Reason Stop Dose Admin Diphenhydramine HCl 25 mg 01/14/22 18:50 01/14/22 18:57 Diphenhydramine 50mg/Ml Vial IM 01/14/22 18:51 25 mg ONCE ONE Administration Ketorolac Tromethamine 60 mg 01/14/22 18:50 01/14/22 18:57 Ketorolac 60mg/2ml Vial IM 01/14/22 18:51 60 mg ONCE ONE Administration Ondansetron HCl 4 mg 01/14/22 18:50 01/14/22 18:57 Ondansetron 4mg Odt SL 01/14/22 18:51 4 mg ONCE ONE Administration Medical Decision Narrative: Patient reports that she has bar in arm and denies [facility] [place] HPI - General Stated complaint: DURAN, Vomiting Time Seen by Provider: 01/14/22 18:33 Mode of Arrival: Ambulatory Source of Information: Patient, Parent(s) Limitations: No Limitations Description of Symptoms (Recalled from Triage Doc. by RN): PATIENT C/O MIGRAINE AND VOMITING SINCE YESTERDAY HEENT Symptoms (Recalled from RN notes): Yes Resp Symptoms (Recalled from RN notes): No Skin Symptoms (Recalled from RN notes): No MS Symptoms (Recalled from RN notes): No Functional Status (Recalled from RN notes): WNL - History of Present Illness Provider Complaint: Patient states that she has a history of Migraines States that she started with migraine headache yesterday and it has continued State that she has had N/V States that is typical with her headaches so she came in to get something to help with the pain States that she usually gets a few shots and it helps - Related Data Home Medications Medication Instructions Recorded Confirmed etonogestrel 68 mg subdermal SUBDERMAL each 06/28/19 12/02/21 implant metoclopramide HCl 10 mg tablet PO 07/10/20 12/02/21 rizatriptan 10 mg disintegrating 10 mg PO tab 12/02/21 12/02/21 tablet topiramate 50 mg tablet 50 mg PO tab 12/02/21 12/02/21 Previous Rx's Medication Instructions Recorded cholecalciferol (vitamin D3) 1,250 1,250 mcg PO WEEKLY #7 tab 07/26/21 mcg (50,000 unit) tablet cholecalciferol (vitamin D3) 50 50 mcg PO DAILY 30 Days #30 cap 07/26/21 mcg (2,000 unit) capsule buspirone 5 mg tablet 5 mg PO BID #60 tab 12/02/21 Allergies Allergy/AdvReac Type Severity Reaction Status Date / Time amoxicillin [AMOXICILLIN] Allergy Unknown Verified 12/02/21 09:24 cefixime [From SUPRAX] Allergy Unknown Verified 12/02/21 09:24 latex [LATEX] Allergy Unknown Verified 12/02/21 09:24 shellfish derived Allergy Unknown RASH/ITCHIN Verified 12/02/21 09:24 [From SHELLFISH (FOOD/DRUG)] G shrimp [SHRIMP] Allergy Unknown Verified 12/02/21 09:24 Penicillins Allergy Verified 01/14/22 18:02 - Worker's Comp Is
[2022-01-14 19:02] VITALS: BP 133/89; PULSE 90; RESP 17; TEMP 37.1; O2SAT 98
== END 2022-01-14 19:21 | disposition home or self-care (01) ==
PROVIDERS: Emergency Provider Nurse Practitioner; PCP Nurse Practitioner Family
DX: G43.909 Migraine, unspecified, not intractable, without status migrainosus (principal); I10 Essential (primary) hypertension; F41.9 Anxiety disorder, unspecified; Z88.0 Allergy status to penicillin
CPT/HCPCS: 96372; 99212; G0463

== ENCOUNTER 2022-03-17 19:41 | Emergency (ER) | payer BC, SELFPAY ==
[2022-03-17 19:45] VITALS: BP 138/91; PULSE 107; RESP 18; TEMP 36.8; O2SAT 100; BMI 50.3
--- NOTE | 2022-03-17 20:28 | HMH.EDUTC ---
[facility] [place] Disposition Clinical Impression: Migraine Qualifiers: Migraine type: unspecified Status migrainosus presence: without status migrainosus Intractability: not intractable Qualified Code(s): G43.909 - Migraine, unspecified, not intractable, without status migrainosus Disposition: Home, Self-Care Condition on Discharge: Good Instructions: Migraine -- Adult Additional Instructions: Go Home lay down and sleep off remainder of migraine headache Return if needed Follow up with your Family Doctor if no improvement or any worsening of symptoms Straight to ER if any life threatening symptoms Referrals: Anastasiia Baugh APRN [Primary Care Provider] - As needed Time of Disposition: 20:53 Medical Decision Making - Robin Inquiry Pt receiving controlled substance: No Robin was queried for this patient: No Vital Signs: 03/17/22 19:45 03/17/22 20:48 Temperature 98.2 F 98.2 F Temperature Source Oral Pulse Rate 107 H Pulse Rate [Left Brachial] 107 H Respiratory Rate 18 18 Blood Pressure 138/91 H Blood Pressure [Left Arm] 138/91 H Blood Pressure Mean [Left Arm] 106 Blood Pressure Source [Left Arm] Automatic Cuff Blood Pressure Position [Left Arm] Sitting 02 Sat by Pulse Oximetry 100 Oxygen Delivery Method Room Air - Lab Data Lab Results 03/17/22 20:23: Tst Clinic Negative Orders (Tests/Meds): ED MEDICATIONS Discontinued Medications Generic Name Dose Route Start Last Admin Trade Name Nancy PRN Reason Stop Dose Admin Ketorolac Tromethamine 60 mg 03/17/22 20:32 03/17/22 20:40 Ketorolac 60mg/2ml Vial IM 03/17/22 20:33 60 mg ONCE ONE Administration Methylprednisolone Sodium Succinate 125 mg 03/17/22 20:32 03/17/22 20:40 Methylprednisolone Sod Succ 125mg Vial IM 03/17/22 20:33 125 mg ONCE ONE Administration Promethazine HCl 12.5 mg 03/17/22 20:33 03/17/22 20:40 Promethazine Hcl 25mg/Ml 1ml Vial IM 03/17/22 20:34 12.5 mg ONCE ONE Administration Sodium Chloride 25 ml 03/17/22 20:33 03/17/22 20:45 Sodium Chloride 0.9% 25ml Bag IV 03/17/22 20:34 Not Given ONCE ONE Medical Decision Narrative: Patient denies states that she has bar in her arm states that benadryl and zofran upset her stomach last time does not want this for this migraine [facility] [place] HPI - General Stated complaint: DURAN Time Seen by Provider: 03/17/22 20:00 Mode of Arrival: Ambulatory Source of Information: Patient Limitations: No Limitations Description of Symptoms (Recalled from Triage Doc. by RN): PATIENT C/O MIGRAINE SINCE NOON TODAY HEENT Symptoms (Recalled from RN notes): Yes Resp Symptoms (Recalled from RN notes): No Skin Symptoms (Recalled from RN notes): No MS Symptoms (Recalled from RN notes): No Functional Status (Recalled from RN notes): WNL - History of Present Illness Provider Complaint: Patient states that she has migraine headaches States that for the last couple of days she has felt it coming on and tonight it was hurting worse so she came in to get a shot to help it States last time she got benadryl and zofran it tore her stomach up not wanting them - Related Data Home Medications Medication Instructions Recorded Confirmed etonogestrel 68 mg subdermal SUBDERMAL each 06/28/19 12/02/21 implant metoclopramide HCl 10 mg tablet PO 07/10/20 12/02/21 rizatriptan 10 mg disintegrating 10 mg PO tab 12/02/21 12/02/21 tablet topiramate 50 mg tablet 50 mg PO tab 12/02/21 12/02/21 Previous Rx's Medication Instructions Recorded cholecalciferol (vitamin D3) 1,250 1,250 mcg PO WEEKLY #7 tab 07/26/21 mcg (50,000 unit) tablet cholecalciferol (vitamin D3) 50 50 mcg PO DAILY 30 Days #30 cap 07/26/21 mcg (2,000 unit) capsule buspirone 5 mg tablet See Rx Instructions .ROUTE 03/15/22 .COMPLEX #60 tab Allergies Allergy/AdvReac Type Severity Reaction Status Date / Time amoxicillin [AMOXICILLIN] Allergy Unknown Verified 12/02/21 09:24
[2022-03-17 20:41] LABS: UTC Pregnancy Test, Urine Negative (Negative)
[2022-03-17 20:48] VITALS: BP 138/91; PULSE 107; RESP 18; TEMP 36.8; O2SAT 100
== END 2022-03-17 21:00 | disposition home or self-care (01) ==
PROVIDERS: Emergency Provider Nurse Practitioner; PCP Nurse Practitioner Family
DX: G43.909 Migraine, unspecified, not intractable, without status migrainosus (principal)
CPT/HCPCS: 81025; 96372; 99212; G0463

== ENCOUNTER 2022-03-19 16:36 | Emergency (ER) | payer BC, SELFPAY ==
--- NOTE | 2022-03-19 16:57 | HMH.EDABDPAI ---
ED Disposition Clinical Impression: Abdominal pain Disposition: Home, Self-Care Condition on Discharge: Good Instructions: DI for Acute Abdominal Pain Additional Instructions: Take the medications as prescribed as needed for abdominal cramping and nausea and consider adding simethicone throughout the day for gaseous distention. Prescriptions: Dicyclomine HCl [Bentyl 10mg capsule] 10 mg PO TID #9 cap Transmission Status: Pending to [facility] Ondansetron [Zofran 4mg ODT] 4 mg PO TIDP PRN 3 Days #9 tab PRN Reason: Nausea Transmission Status: Pending to [facility] Referrals: Anastasiia Baugh APRN [Primary Care Provider] - Time of Disposition: 19:35 - Critical Care Critical Care Time: No Attestation: On , the high probability of a clinically significant, sudden or life threatening deterioration of the following system(s) required my full and direct attention, intervention and personal management. The time I documented below is in addition to time spent performing reported procedures but includes the following listed in this critical care notation. Medical Decision Making - Medical Records Medical records reviewed: Yes: I reviewed the patient's medical records. - Robin Inquiry Pt receiving controlled substance: No Vital Signs: 03/19/22 16:58 03/19/22 17:00 Temperature 98 F Temperature Source Oral Pulse Rate 90 Pulse Rate [Radial] 101 H Respiratory Rate 20 21 Blood Pressure 142/89 H Blood Pressure [Right Arm] 142/89 H Blood Pressure Mean 99 Blood Pressure Mean [Right Arm] 106 Blood Pressure Position [Right Arm] Sitting 02 Sat by Pulse Oximetry 98 100 Oxygen Delivery Method Room Air - Lab Data Lab results reviewed: Yes: I reviewed the patient's lab results. Lab Results 03/19/22 17:57: WBC 8.1, RBC 4.62, Hgb 15.2, Hct 47.4 H, MCV 102.6 H, MCH 32.9 H, MCHC 32.1, RDW 13.4, Plt Count 303, MPV 9.3, Neut % (Auto) 69.7, Lymph % (Auto) 22.4, [place] % (Auto) 5.2, Eos % (Auto) 0.9, Baso % (Auto) 1.7, Neut # (Auto) 5.6, Lymph # (Auto) 1.8, [place] # (Auto) 0.4, Eos # (Auto) 0.1, Baso # (Auto) 0.1 03/19/22 17:57: Sodium 138, Potassium 3.7, Chloride 108 H, Carbon Dioxide 23, Anion Gap 10.7, BUN 17, Creatinine 0.80, Estimated Creat Clear 86, Estimated GFR 88, Est GFR ( Amer) 107, Glucose 88, Calcium 8.8, Total Bilirubin 0.4, AST 40 H, ALT 33, Alkaline Phosphatase 72, C-Reactive Protein 0.7, Total Protein 6.8, Albumin 4.2, Globulin 2.6, Albumin/Globulin Ratio 1.6, Lipase 66 03/19/22 17:57: Serum HCG, Qual Negative 03/19/22 18:03: Urine Color Yellow, Urine Appearance Sl cloudy, Urine pH 5.0, Ur Specific [place] >= 1.030, Urine Protein Negative, Urine Glucose (UA) Negative, Urine Ketones Negative, Urine Blood Negative, Urine Nitrate Negative, Urine Bilirubin Negative, Urine Urobilinogen 0.2, Ur Leukocyte Esterase Negative, Urine RBC None, Urine WBC 5-10, Ur Squamous Epith Cells 10-20, Urine Bacteria Trace Result diagrams: 03/19/22 17:57 03/19/22 17:57 Orders (Tests/Meds): ED MEDICATIONS Discontinued Medications Generic Name Dose Route Start Last Admin Trade Name Kenyonq PRN Reason Stop Dose Admin Belladonna Alkaloids 60 ml 03/19/22 17:33 03/19/22 18:22 Gi Cocktail 60ml Udc PO 03/19/22 17:34 60 ml ONCE ONE Administration Dicyclomine HCl 20 mg 03/19/22 17:33 03/19/22 17:50 Dicyclomine 10mg Capsule PO 03/19/22 17:34 20 mg ONCE ONE Administration Sodium Chloride 1,000 mls @ 999 mls/hr 03/19/22 17:45 03/19/22 18:22 Sod Chlor 0.9% 1000ml Bag IV 03/19/22 18:45 999 mls/hr .Q1H1M LOLLY Administration Ondansetron HCl 4 mg 03/19/22 17:33 03/19/22 18:23 Ondansetron 4mg/2ml Vial IV 03/19/22 17:34 4 mg ONCE ONE Administration - Radiology Data #1 Image(s): Abdomen Image Reviewed: Yes I have reviewed radiologist's interpretation Patient: Padmini Sampson MR#: [id number] : 1995 Acct:[id number] Age/Sex: 26
[2022-03-19 16:58] VITALS: BP 142/89; PULSE 101; RESP 20; TEMP 36.6; O2SAT 98; BMI 51.2
[2022-03-19 17:00] VITALS: BP 142/89; PULSE 90; RESP 21; O2SAT 100
--- NOTE | 2022-03-19 17:33 | XR_ITS ---
PROCEDURE INFORMATION: Exam: XR Abdomen Exam date and time: 03/19/2022 6:37 PM Age: 26 years old Clinical indication: Abdominal pain; Generalized; Prior surgery; Surgery date: 6+ months; Surgery type: Gallbladder TECHNIQUE: Imaging protocol: XR of the abdomen. Views: Frontal supine view of the abdomen. 1 View. COMPARISON: ABDPELW/O CT ABD PELVIS W/O CONTRAST 10/11/2016 12:04 AM FINDINGS: Gastrointestinal tract: Gaseously distended segments of small bowel may represent slow motility or mild ileus. Bones/joints: Unremarkable. IMPRESSION: Gaseously distended segments of small bowel may represent slow motility or mild ileus. Please exclude enterocolitis.
[2022-03-19 18:12] LABS: Appearance,Urine SL CLOUDY (Clear); Bilirubin,Urine Negative (Negative); Blood, Urine Negative (Negative); Color,Urine YELLOW (Yellow); Glucose,Urine (UA) Negative (Negative); Ketones,Urine Negative (Negative); Leukocyte Esterase,Urine Negative (Negative); Microscopic, Urine URINE MICROSCOPIC (MICROSCOPIC); Nitrate,Urine Negative (Negative); Protein,Urine Negative (Negative); Specific Gravity, Urine >= 1.030 (1.005-1.030); Urobilinogen,Urine 0.2 EU/dl (0.2)
[2022-03-19 18:14] LABS: Chloride 108 mmol/L (98-107); Potassium 3.7 mmoL/L (3.5-5.1); Sodium 138 mmol/L (136-145)
[2022-03-19 18:16] LABS: Alanine Aminotransferase 33 U/L (12-78); Aspartate Amino Transferase 40 U/L (14-36); Blood Urea Nitrogen 17 mg/dl (7-17); Creatinine Clearance Estimated 86 mL/min (50-200); Estimated Glomerular Filt Rate 88 ml/min (>60); GFR (African American) 107 ML/MIN (>60)
[2022-03-19 18:17] LABS: Albumin Level 4.2 g/dl (3.5-5.0); Albumin/Globulin Ratio 1.6 (1.1-1.8); Alkaline Phosphatase 72 U/L (38-126); Anion Gap 10.7 mEq/L (5-15); Bilirubin,Total 0.4 mg/dl (0.2-1.3); Calcium 8.8 mg/dl (8.4-10.2); Carbon Dioxide 23 mmol/L (22.0-30.0); Globulin 2.6 g/dL (1.3-3.2); Glucose 88 mg/dl (74-100); Lipase 66 U/L (23-300); Total Protein,Serum 6.8 g/dl (6.3-8.2)
[2022-03-19 18:18] LABS: Bacteria,Urine Trace /lpf
[2022-03-19 18:20] LABS: HCG Qualitative, Serum Negative (Negative)
[2022-03-19 18:22] LABS: C-Reactive Protein 0.7 mg/L (0-4)
[2022-03-19 18:31] LABS: Basophils # 0.1 K/mm3 (0-0.2); Basophils % 1.7 % (0.1-2.0); Eosinophils # 0.1 K/mm3 (0.0-0.4); Eosinophils % 0.9 % (0.1-12.0); Hematocrit 47.4 % (37.0-47.0); Hemoglobin 15.2 g/dL (12.2-16.2); Lymphocytes # 1.8 K/mm3 (0.7-4.5); Lymphocytes % 22.4 % (10-50); Mean Corpuscular HGB Conc 32.1 g/dL (31.8-35.4); Mean Corpuscular Hemoglobin 32.9 pg (27.0-31.2); Mean Corpuscular Volume 102.6 fl (81-99); Mean Platelet Volume 9.3 fl (7.4-10.4); Monocytes # 0.4 K/mm3 (0.1-1.0); Monocytes % 5.2 % (1.7-9.3); Neutrophils # 5.6 K/mm3 (1.8-7.8); Neutrophils % 69.7 % (37.0-80.0); Platelet Count 303 K/mm3 (142-424); Red Blood Count 4.62 M/mm3 (4.20-5.40); Red Cell Distribution Width 13.4 % (11.5-17.5); White Blood Count 8.1 K/mm3 (4.8-10.8)
[2022-03-19 19:57] VITALS: BP 144/71; PULSE 88; RESP 16; TEMP 36.7; O2SAT 97
== END 2022-03-19 20:02 | disposition home or self-care (01) ==
PROVIDERS: Emergency Provider Student in an Organized Health Care Education/Training Program; PCP Nurse Practitioner Family
DX: R10.9 Unspecified abdominal pain (principal); Z90.49 Acquired absence of other specified parts of digestive tract; Z88.1 Allergy status to other antibiotic agents; Z91.040 Latex allergy status; Z88.0 Allergy status to penicillin; Z91.013 Allergy to seafood
CPT/HCPCS: 74018; 80053; 81001; 83690; 84703; 85025; 86140; 96365; 96375; 99284; J2405

== ENCOUNTER 2022-04-28 19:40 | Emergency (ER) | payer BC, SELFPAY ==
[2022-04-28 19:50] VITALS: PULSE 91; RESP 21; TEMP 37; O2SAT 99; BMI 47.4
--- NOTE | 2022-04-28 20:21 | HMH.EDUTC ---
[facility] [place] Disposition Clinical Impression: Migraine Qualifiers: Migraine type: unspecified Status migrainosus presence: without status migrainosus Intractability: not intractable Qualified Code(s): G43.909 - Migraine, unspecified, not intractable, without status migrainosus Disposition: Home, Self-Care Condition on Discharge: Good Instructions: Corneal Abrasion, DI for Migraine Additional Instructions: Use ointment as prescribed in right eye if no improvement or any worsening of symptoms follow up with Eye Doctor for further evaluation and exam do not wear contacts until eye clear Go home and sleep off remainder of migraine headache Follow up with your Family Doctor if no improvement or any worsening of symptoms Recommend follow up with Neurology for further evaluation and discuss alternative treatments for migraines if you medication isnt working Straight to ER if any life threatening symptoms Prescriptions: Erythromycin Base [Erythromycin 1gm opth ointment] 1 applic OP Q4H 7 Days #2 gm Transmission Status: Pending to [facility] Referrals: Delia Marley PA [Primary Care Provider] - As needed Forms: Work/School Release Medical Decision Making - Robin Inquiry Pt receiving controlled substance: No Robin was queried for this patient: No Vital Signs: 04/28/22 19:50 04/28/22 20:35 Temperature 98.6 F 98.6 F Temperature Source Oral Pulse Rate 91 H Pulse Rate [Left] 91 H Respiratory Rate 21 21 Blood Pressure 0/0 L 02 Sat by Pulse Oximetry 99 Oxygen Delivery Method Room Air Orders (Tests/Meds): ED MEDICATIONS Discontinued Medications Generic Name Dose Route Start Last Admin Trade Name Nancy PRN Reason Stop Dose Admin Ketorolac Tromethamine 60 mg 04/28/22 20:22 04/28/22 20:30 Ketorolac 60mg/2ml Vial IM 04/28/22 20:23 60 mg ONCE ONE Administration Promethazine HCl 25 mg 04/28/22 20:22 04/28/22 20:30 Promethazine Hcl 25mg/Ml 1ml Vial IM 04/28/22 20:23 25 mg ONCE ONE Administration Sodium Chloride 25 ml 04/28/22 20:22 04/28/22 20:25 Sodium Chloride 0.9% 25ml Bag IV 04/28/22 20:23 Not Given ONCE ONE Medical Decision Narrative: Recommended eye exam with eye box and patient declined states that her migraine is bad and she wanted to get treatment for that and did not want an eye exam with the box due to light shining in eye Also discussed migraine coctail and recommended treatment for migraines patient states that she has adverse reactions to benadryl and it makes her have insomnia and does not want the SoluMedrol due to last time it upset her stomach States that she has taken the Toradol and Phenergan in the past and able to sleep off migraine wants that again today Patient states that she has taken azithromycin in the past without reactions or complications Patient states that medication is helping headache is much better [facility] [place] HPI - General Stated complaint: headache Time Seen by Provider: 04/28/22 19:55 Mode of Arrival: Ambulatory Source of Information: Patient Limitations: No Limitations Description of Symptoms (Recalled from Triage Doc. by RN): PATIENT C/O MIGRAINE AND REDNESS TO RIGHT EYE SINCE YESTERDAY HEENT Symptoms (Recalled from RN notes): Yes Resp Symptoms (Recalled from RN notes): No Skin Symptoms (Recalled from RN notes): No MS Symptoms (Recalled from RN notes): No Functional Status (Recalled from RN notes): WNL - History of Present Illness Provider Complaint: Patient states that she has a history of migraine headaches State that she has been having a migraine since yesterday and got worse today and she wanted to come in and get injections to help with migraine but didnt want the SoluMedrol or Benadryl with the migraine treatment this time because they upset her stomach States that also she was taking out her contact in her right eye and has been having some redness and irritation thinks she may have a small scratch or something on it - Relat
[2022-04-28 20:35] VITALS: BP 0/0; PULSE 91; RESP 21; TEMP 37; O2SAT 99
== END 2022-04-28 20:49 | disposition home or self-care (01) ==
PROVIDERS: Emergency Provider Nurse Practitioner; PCP Physician Assistant
DX: G43.909 Migraine, unspecified, not intractable, without status migrainosus (principal); I10 Essential (primary) hypertension
CPT/HCPCS: 96372; 99212; G0463

== ENCOUNTER → 2022-06-23 06:42 | Outpatient (CLI) | payer BC, SELFPAY | PROVIDERS: PCP Family Medicine; Visit Provider Nurse Practitioner Family | DX: E03.9 Hypothyroidism, unspecified (principal) | CPT/HCPCS: 84443 ==

== ENCOUNTER 2022-07-07 19:15 | Emergency (ER) | payer BC, SELFPAY ==
[2022-07-07 19:45] VITALS: BP 140/92; PULSE 75; RESP 18; TEMP 37; O2SAT 100; BMI 47.6
--- NOTE | 2022-07-07 20:18 | EXP.UTC ---
Discharge Plan Disposition Patient Disposition: Home, Self-Care Condition: Good Prescriptions Prescriptions: No Action metoclopramide HCl 10 mg tablet PO topiramate 50 mg tablet 50 mg PO rizatriptan 10 mg tablet,disintegrating 10 mg PO cholecalciferol (vitamin D3) 1,250 mcg (50,000 unit) tablet 1,250 mcg PO WEEKLY Qty: 7 1RF levothyroxine [Synthroid] 75 mcg tablet 75 mcg PO DAILY Qty: 30 2RF Nexplanon 68 mg implant SUBDERMAL cholecalciferol (vitamin D3) 50 mcg (2,000 unit) capsule 50 mcg PO DAILY 30 Days Qty: 30 3RF buspirone 5 mg tablet See Rx Instructions .ROUTE .COMPLEX Qty: 60 1RF Dose Instruction: TAKE 1 TABLET BY MOUTH TWICE DAILY MAY CAUSE DROWSINESS Rx Instructions: TAKE 1 TABLET BY MOUTH TWICE DAILY MAY CAUSE DROWSINESS erythromycin 1 GM ointment 1 applic OP Q4H 7 Days Qty: 2 0RF Rx Instructions: apply one ribbon in right eye as directed for 7 days Referrals Follow up/Referrals: Delia Marley PA [Primary Care Provider] - See instructions Activity Restrictions/Add. Instructions Additional Instructions/Restrictions: Go home and lay down and sleep off remainder of migraine headache Return if needed Follow up with your Family Doctor if no improvment or any worsening of symptoms Straight to ER if any life threatening symptoms Clinical Impressions Clinical Impression: Migraine Stand Alone Forms Stand Alone Forms: Work/School Release Instructions Patient Instructions: Migraine -- Adult, DI for Migraine Discharge ED Provider: Yaquelin Ocasio [facility] General Stated complaint: NA, MIGRANE, VOMITING Mode of Arrival: Ambulatory Source of Information: Patient Limitations: No Limitations Time Seen by Provider: 07/07/22 20:18 Description of Symptoms (Recalled from Triage Doc. by RN): PATIENT C/O MIGRAINE THAT STARTED THIS MORNING HEENT Symptoms (Recalled from RN notes): Yes Resp Symptoms (Recalled from RN notes): No Skin Symptoms (Recalled from RN notes): No MS Symptoms (Recalled from RN notes): No Functional Status (Recalled from RN notes): WNL History of Present Illness Provider Complaint: Patient state that she has a history of migraine headaches states that sometimes she has to come in and get injections to help get rid of the migraine States that it started this morning and has continued throughout the day so she came in to get something to help Related Data Home Medications Medication Instructions Recorded Confirmed etonogestrel 68 mg subdermal subdermal 06/28/19 06/23/22 implant (Nexplanon) metoclopramide HCl 10 mg tablet PO 07/10/20 06/23/22 rizatriptan 10 mg disintegrating 10 mg PO 12/02/21 06/23/22 tablet topiramate 50 mg tablet 50 mg PO 12/02/21 06/23/22 Previous Rx's Medication Instructions Recorded cholecalciferol (vitamin D3) 50 50 mcg PO DAILY 30 days #30 caps 07/26/21 mcg (2,000 unit) capsule buspirone 5 mg tablet See Rx Instructions .Route 03/15/22 .COMPLEX #60 tabs cholecalciferol (vitamin D3) 1,250 1,250 mcg PO WEEKLY #7 tabs 04/14/22 mcg (50,000 unit) tablet levothyroxine 75 mcg tablet 75 mcg PO DAILY #30 tabs 04/14/22 (Synthroid) erythromycin 5 mg/gram (0.5 %) eye 1 applic ophthalmic (eye) Q4H 7 04/28/22 ointment days #2 grams Allergies Allergy/AdvReac Type Severity Reaction Status Date / Time amoxicillin [AMOXICILLIN] Allergy Unknown Verified 06/23/22 15:31 cefixime [From SUPRAX] Allergy Unknown Verified 06/23/22 15:31 latex [LATEX] Allergy Unknown Verified 06/23/22 15:31 shellfish derived Allergy Unknown RASH/ITCHIN Verified 06/23/22 15:31 [From SHELLFISH (FOOD/DRUG)] G shrimp [SHRIMP] Allergy Unknown Verified 06/23/22 15:31 Penicillins Allergy Verified 06/23/22 15:31 Worker's Comp Is this a Worker's Comp case?: No PFSH [facility] Medical History (Updated 07/07/22 @ 20:31 by Yaquelin Ocasio APRN) Anxiety Hx of deep venous thrombosis Hypot
[2022-07-07 20:39] VITALS: BP 140/92; PULSE 75; RESP 18; TEMP 37; O2SAT 100
== END 2022-07-07 20:45 | disposition home or self-care (01) ==
PROVIDERS: Emergency Provider Nurse Practitioner; PCP Physician Assistant
DX: G43.909 Migraine, unspecified, not intractable, without status migrainosus (principal); R11.10 Vomiting, unspecified; E03.9 Hypothyroidism, unspecified; R91.1 Solitary pulmonary nodule; F41.9 Anxiety disorder, unspecified; Z79.3 Long term (current) use of hormonal contraceptives; Z79.899 Other long term (current) drug therapy; Z88.0 Allergy status to penicillin; Z88.1 Allergy status to other antibiotic agents; Z88.3 Allergy status to other anti-infective agents; Z88.8 Allergy status to other drugs, medicaments and biological substances; Z91.040 Latex allergy status; Z91.013 Allergy to seafood; Z86.718 Personal history of other venous thrombosis and embolism
CPT/HCPCS: 96372; 99213; G0463

== ENCOUNTER 2022-09-21 10:53 | Emergency (ER) | payer BC, SELFPAY ==
[2022-09-21 10:54] VITALS: BP 138/95; PULSE 105; RESP 18; TEMP 36.5; O2SAT 100; BMI 54.0
--- NOTE | 2022-09-21 11:08 | HMH.EDHA ---
Discharge Plan Disposition Patient Disposition: Home, Self-Care Condition: Good Prescriptions Prescriptions: No Action metoclopramide HCl 10 mg tablet PO topiramate 50 mg tablet 50 mg PO rizatriptan 10 mg tablet,disintegrating 10 mg PO cholecalciferol (vitamin D3) 1,250 mcg (50,000 unit) tablet 1,250 mcg PO WEEKLY Qty: 7 1RF Nexplanon 68 mg implant SUBDERMAL levothyroxine 100 mcg tablet 100 mcg PO methylprednisolone 4 mg tablets,dose pack See Rx Instructions PO PER PKG DIR Qty: 21 0RF Rx Instructions: PO PER PKG DIR azithromycin [Zithromax Z-Mateo] 250 mg tablet See Rx Instructions PO .COMPLEX Qty: 6 0RF Rx Instructions: For 250 mg dose pack: take 500 mg today (day 1), then 250 mg for 4 days (days 2-5) PO promethazine-DM 6.25-15 mg/5 mL syrup 5 ml PO Q4-6H PRN (Reason: cough) Qty: 118 0RF cholecalciferol (vitamin D3) 50 mcg (2,000 unit) capsule 50 mcg PO DAILY 30 Days Qty: 30 3RF buspirone 5 mg tablet See Rx Instructions .ROUTE .COMPLEX Qty: 60 1RF Dose Instruction: TAKE 1 TABLET BY MOUTH TWICE DAILY MAY CAUSE DROWSINESS Rx Instructions: TAKE 1 TABLET BY MOUTH TWICE DAILY MAY CAUSE DROWSINESS Referrals Follow up/Referrals: Delia Marley PA [Primary Care Provider] - See instructions Activity Restrictions/Add. Instructions Additional Instructions/Restrictions: Please keep your appointment with neurology next Monday due to your breakthrough migraines. Please take Tylenol and ibuprofen for pain control as well as your current abortive medication. If symptoms recur please return to the emergency department. Clinical Impressions Clinical Impression: Migraine Stand Alone Forms Stand Alone Forms: Work/School Release Instructions Patient Instructions: DI for Migraine Print Language Print Language: Wolof Discharge ED Provider: Kae Calabrese Headache HPI General Chief Complaint: Headache Stated Complaint: Migrane Time Seen by Provider: 09/21/22 11:05 Mode of Arrival: Ambulatory Source of Information: Patient Limitations: No Limitations Description of Symptoms (Recalled from ER Triage Doc. by RN): c/o migraine since last night, her home medicine did not work. Light and sound sensitivity with nausea. History of Present Illness HPI Narrative: Camilla has hx of migraines reports she began to have a migraine last night described as generalized, associated with photophobia and phonophobia. Similar to her usual headaches. Her abortive medication has been unsuccessful. Patient denies neck pain/meningeal pain. No fevers , cough, congestion or other infectious sx. no focal neurological deficits. Complaint: headache Onset (ago): day(s) Onset description: gradual Location: diffuse Severity: similar to previous episodes Severity scale (1-10): 9 Quality: aching Relieving factors: nothing Exacerbating factors: none Associated symptoms: photophobia and sensitivity to sound Related Data Home Medications Medication Instructions Recorded Confirmed etonogestrel 68 mg subdermal subdermal 06/28/19 09/05/22 implant (Nexplanon) metoclopramide HCl 10 mg tablet PO 07/10/20 09/05/22 rizatriptan 10 mg disintegrating 10 mg PO 12/02/21 09/05/22 tablet topiramate 50 mg tablet 50 mg PO 12/02/21 09/05/22 levothyroxine 100 mcg tablet 100 mcg PO 09/05/22 09/05/22 Previous Rx's Medication Instructions Recorded cholecalciferol (vitamin D3) 50 50 mcg PO DAILY 30 days #30 caps 07/26/21 mcg (2,000 unit) capsule buspirone 5 mg tablet See Rx Instructions .Route 03/15/22 .COMPLEX #60 tabs cholecalciferol (vitamin D3) 1,250 1,250 mcg PO WEEKLY #7 tabs 04/14/22 mcg (50,000 unit) tablet azithromycin 250 mg tablet See Rx Instructions PO .COMPLEX #6 09/05/22 (Zithromax Z-Mateo) tabs methylprednisolone 4 mg tablets in See Rx Instructions PO PER PKG DIR 09/05/22 a dose pack #21 tabs promethazine-DM 6.25 m
[2022-09-21 11:15] VITALS: PULSE 83; O2SAT 100
[2022-09-21 11:26] LABS: Coronavirus 19, PCR Not Detected (NotDetected); Influenza A, PCR Not Detected (NotDetected); Influenza B, PCR Not Detected (NotDetected)
[2022-09-21 11:30] VITALS: BP 135/91; PULSE 80; RESP 20; O2SAT 100
[2022-09-21 12:11] VITALS: BP 124/91; PULSE 79; RESP 18; O2SAT 100
[2022-09-21 12:19] VITALS: BP 129/87; PULSE 102; RESP 20; TEMP 36.5; O2SAT 100
== END 2022-09-21 12:21 | disposition home or self-care (01) ==
PROVIDERS: Emergency Provider Student in an Organized Health Care Education/Training Program; PCP Physician Assistant
DX: G43.909 Migraine, unspecified, not intractable, without status migrainosus (principal); Z79.899 Other long term (current) drug therapy; Z88.8 Allergy status to other drugs, medicaments and biological substances; Z88.1 Allergy status to other antibiotic agents; Z91.040 Latex allergy status; Z88.0 Allergy status to penicillin; Z91.013 Allergy to seafood
CPT/HCPCS: 96365; 96375; 99284; C9803; U0003; U0005

== ENCOUNTER 2022-09-28 18:25 | Emergency (ER) | payer BC, SELFPAY ==
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
[2022-09-28 19:01] VITALS: BP 145/97; PULSE 109; RESP 15; TEMP 36.9; O2SAT 100; BMI 54.0
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
[2022-09-28 20:53] VITALS: BP 140/78; PULSE 90; RESP 16; TEMP 36.9; O2SAT 100
== END 2022-09-28 20:56 | disposition home or self-care (01) ==
PROVIDERS: Emergency Provider Student in an Organized Health Care Education/Training Program; PCP Physician Assistant
DX: S93.601A Unspecified sprain of right foot, initial encounter (principal); G43.909 Migraine, unspecified, not intractable, without status migrainosus; E03.9 Hypothyroidism, unspecified; F41.9 Anxiety disorder, unspecified; Z79.3 Long term (current) use of hormonal contraceptives; Z79.899 Other long term (current) drug therapy; Z88.0 Allergy status to penicillin; Z88.1 Allergy status to other antibiotic agents; Z88.3 Allergy status to other anti-infective agents; Z91.040 Latex allergy status; Z91.013 Allergy to seafood; V49.9XXA Car occupant (driver) (passenger) injured in unspecified traffic accident, initial encounter
CPT/HCPCS: 73630; 99283

== ENCOUNTER 2022-09-29 15:51 | Outpatient (RCR) | payer BC, SELFPAY | END 2022-09-29 16:30 | disposition home or self-care (01) | LOC: PT 15:51 | PROVIDERS: Visit Provider Orthopaedic Surgery | DX: M79.671 Pain in right foot (principal); S92.401K Displaced unspecified fracture of right great toe, subsequent encounter for fracture with nonunion ==

== ENCOUNTER → 2022-10-11 09:37 | Outpatient (CLI) | payer BC, SELFPAY ==
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
== END ==
PROVIDERS: PCP Physician Assistant; Visit Provider Orthopaedic Surgery
DX: S93.601A Unspecified sprain of right foot, initial encounter (principal)
CPT/HCPCS: 73630

== ENCOUNTER → 2022-10-27 13:38 | Outpatient (CLI) | payer BC, SELFPAY ==
--- NOTE | 2022-10-27 13:44 | XR_ITS ---
FINAL REPORT CLINICAL HISTORY: great toe follow up COMPARISON: October 11, 2022 FINDINGS: RIGHT FOOT Three views of the right foot demonstrate no acute fracture or dislocation. The joint spaces are preserved. There is a stable chronic calcification adjacent to the proximal 5th metatarsal. The soft tissues are unremarkable. IMPRESSION: No acute bony abnormality. Reviewed, Interpreted and Dictated by Emilio Urias III, MD Transcribed by Marcelina Cleary Authenticated and . [facility]
== END ==
PROVIDERS: PCP Physician Assistant; Visit Provider Orthopaedic Surgery
DX: S97.111A Crushing injury of right great toe, initial encounter (principal)
CPT/HCPCS: 73630

== ENCOUNTER 2023-03-28 10:55 | Emergency (ER) | payer BC, SELFPAY ==
[2023-03-28 10:55] VITALS: BP 157/114; PULSE 111; RESP 16; TEMP 37; O2SAT 100; BMI 53.4
--- NOTE | 2023-03-28 11:37 | HMH.EDGENADL ---
Discharge Plan Disposition Patient Disposition: Home, Self-Care Condition: Good Chief Complaint: Headache Prescriptions Prescriptions: No Action metoclopramide HCl 10 mg tablet PO topiramate 50 mg tablet 50 mg PO rizatriptan 10 mg tablet,disintegrating 10 mg PO cholecalciferol (vitamin D3) 1,250 mcg (50,000 unit) tablet 1,250 mcg PO WEEKLY Qty: 7 1RF Nexplanon 68 mg implant SUBDERMAL levothyroxine 100 mcg tablet 100 mcg PO methylprednisolone 4 mg tablets,dose pack See Rx Instructions PO PER PKG DIR Qty: 21 0RF Rx Instructions: PO PER PKG DIR cholecalciferol (vitamin D3) 50 mcg (2,000 unit) capsule 50 mcg PO DAILY 30 Days Qty: 30 3RF buspirone 5 mg tablet See Rx Instructions .ROUTE .COMPLEX Qty: 60 1RF Dose Instruction: TAKE 1 TABLET BY MOUTH TWICE DAILY MAY CAUSE DROWSINESS Rx Instructions: TAKE 1 TABLET BY MOUTH TWICE DAILY MAY CAUSE DROWSINESS Referrals Follow up/Referrals: Delia Marley PA [Primary Care Provider] - See instructions Clinical Impressions Clinical Impression: Migraine Instructions Patient Instructions: DI for Migraine Discharge ED Provider: Davi Rojas General Adult HPI General Chief complaint: Headache Stated complaint: Headache Time Seen by Provider: 03/28/23 11:56 Mode of Arrival: Ambulatory Source of Information: Patient Limitations: No Limitations Description of Symptoms (Recalled from ER Triage Doc. by RN): Pt reports migraine x2 days. Reports light senstivity, n/v, and dizzy at times. Pt reports hx of migraines, states similar symptoms with previous migraines. History of Present Illness HPI narrative: This is a 27-year-old white female with a history of chronic intermittent migraines who began developing a migraine 2 days ago the headache was right-sided associated with scintillating scotoma and photophobia and phonophobia. Patient states that this was like her typical migraine. Patient tried a variety of home medications including Maxalt Ubrelvy ibuprofen all of which relieved the headache temporarily but then it reoccurred after couple hours. The headache was not sudden severe and not the worst headache of her life. Related Data Home Medications Medication Instructions Recorded Confirmed etonogestrel 68 mg subdermal subdermal 06/28/19 10/27/22 implant (Nexplanon) metoclopramide HCl 10 mg tablet PO 07/10/20 10/27/22 rizatriptan 10 mg disintegrating 10 mg PO 12/02/21 10/27/22 tablet topiramate 50 mg tablet 50 mg PO 12/02/21 10/27/22 levothyroxine 100 mcg tablet 100 mcg PO 09/05/22 10/27/22 Previous Rx's Medication Instructions Recorded cholecalciferol (vitamin D3) 50 50 mcg PO DAILY 30 days #30 caps 07/26/21 mcg (2,000 unit) capsule buspirone 5 mg tablet See Rx Instructions .Route 03/15/22 .COMPLEX #60 tabs cholecalciferol (vitamin D3) 1,250 1,250 mcg PO WEEKLY #7 tabs 04/14/22 mcg (50,000 unit) tablet methylprednisolone 4 mg tablets in See Rx Instructions PO PER PKG DIR 09/05/22 a dose pack #21 tabs Allergies Allergy/AdvReac Type Severity Reaction Status Date / Time amoxicillin [AMOXICILLIN] Allergy Unknown Verified 10/27/22 14:44 cefixime [From SUPRAX] Allergy Unknown Verified 10/27/22 14:44 latex [LATEX] Allergy Unknown Verified 10/27/22 14:44 shellfish derived Allergy Unknown RASH/ITCHIN Verified 10/27/22 14:44 [From SHELLFISH (FOOD/DRUG)] G shrimp [SHRIMP] Allergy Unknown Verified 10/27/22 14:44 Penicillins Allergy Verified 10/27/22 14:44 [facility] Disclaimer: The information contained in this section may have been updated after the patient was seen, as this information can be updated by other users. Medical History Anxiety Hx of deep venous thrombosis Hypothyroidism Lung nodules Migraine Screen for STD (sexually transmitted disease) Surgical History (Revie
--- NOTE | 2023-03-28 12:46 | PC.NURSE ---
Mother brought patient a sausage and biscuit from [employer] that she was able to eat and keep down. No complaints or needs at this time.
[2023-03-28 13:06] VITALS: BP 145/78; PULSE 80; RESP 16; TEMP 36.7
== END 2023-03-28 13:07 | disposition home or self-care (01) ==
PROVIDERS: Emergency Provider Emergency Medicine; PCP Physician Assistant
DX: G43.909 Migraine, unspecified, not intractable, without status migrainosus (principal); R11.2 Nausea with vomiting, unspecified; R42 Dizziness and giddiness; F41.9 Anxiety disorder, unspecified; E03.9 Hypothyroidism, unspecified
CPT/HCPCS: 96361; 96374; 96375; 99284

== ENCOUNTER 2023-08-05 02:08 | Emergency (ER) | payer BC, SELFPAY ==
[2023-08-05] VITALS (7 sets, daily range): BP systolic 119–127; BP diastolic 86–89; PULSE 91–136; RESP 11–20; TEMP 36.8–37.4; O2SAT 96–100; BMI 51.2
--- NOTE | 2023-08-05 02:07 | ECG_ITS ---
APPROVED REPORT Exam: Resting ECG HR:132 bpm ECG Measurements Heart Rate 132 AXES AK 149 P 60 QRSd 75 QRS 59 QT 298 T 18 QTc 376 Conclusion SINUS TACHYCARDIA ABNORMAL RHYTHM ECG UNCONFIRMED REPORT Electronically signed by : Brandt Mueller MD 08/05/2023 10:35:39
--- NOTE | 2023-08-05 02:09 | CT_ITS ---
PROCEDURE INFORMATION: Exam: CTA Chest With Contrast Exam date and time: 08/05/2023 2:56 AM Age: 27 years old Clinical indication: Pain; Chest pressure; Additional info: Chest pain TECHNIQUE: Imaging protocol: Computed tomographic angiography of the chest with contrast. Exam focused on the arteries. 3D rendering (Not supervised by radiologist): MIP and/or 3D reconstructed images were created by the technologist. Radiation optimization: All CT scans at this facility use at least one of these dose optimization techniques: automated exposure control; mA and/or kV adjustment per patient size (includes targeted exams where dose is matched to clinical indication); or iterative reconstruction. Contrast material: ISOVUE; Contrast volume: 70 ml; Contrast route: INTRAVENOUS (IV); REPORTING DATA: Count of CT and Cardiac NM exams in prior 12 months: This patient has received 0 known CTs and 0 known cardiac nuclear medicine studies in the 12 months prior to the current study. COMPARISON: [facility] CT angio chest 02/22/2018 12:45 PM FINDINGS: Pulmonary arteries: Normal. No pulmonary emboli. Aorta: Unremarkable. No aortic aneurysm. No aortic dissection. Lungs: Stable 6 mm posterior right lung base nodule axial image 81. Pleural spaces: Unremarkable. No pneumothorax. No pleural effusion. Heart: Unremarkable. No cardiomegaly. No pericardial effusion. Lymph nodes: Unremarkable. No enlarged lymph nodes. Bones/joints: Unremarkable. No acute fracture. Soft tissues: Unremarkable. IMPRESSION: 1. No acute findings. No pulmonary embolus. 2. Stable 6 mm right lower lobe nodule. No follow-up is recommended.
--- NOTE | 2023-08-05 02:12 | PC.NURSE ---
in room talking with patient at this time.
[2023-08-05 02:17] LABS: Basophils % 0.3 % (0.1-2.0); Eosinophils # 0.1 K/mm3 (0.0-0.4); Hematocrit 41.5 % (37.0-47.0); Hemoglobin 14.1 g/dL (12.2-16.2); Lymphocytes % 16.7 % (10-50); Mean Corpuscular Volume 97.2 fl (81-99); Mean Platelet Volume 9.4 fl (7.4-10.4); Monocytes # 0.4 K/mm3 (0.1-1.0); Monocytes % 5.9 % (1.7-9.3); Neutrophils # 4.5 K/mm3 (1.8-7.8); Platelet Count 252 K/mm3 (142-424); Red Blood Count 4.27 M/mm3 (4.20-5.40); Red Cell Distribution Width 13.7 % (11.5-17.5)
[2023-08-05 02:25] LABS: Alanine Aminotransferase 28 U/L (12-78); Albumin/Globulin Ratio 1.4 (1.1-1.8); Alkaline Phosphatase 59 U/L (38-126); Anion Gap 13.6 mEq/L (5-15); Aspartate Amino Transferase 30 U/L (14-36); Bilirubin,Total 0.3 mg/dl (0.2-1.3); Blood Urea Nitrogen 6 mg/dl (7-17); Calcium 8.4 mg/dl (8.4-10.2); Carbon Dioxide 23 mmol/L (22.0-30.0); Chloride 105 mmol/L (98-107); Creatinine Clearance Estimated 97 mL/min (50-200); Estimated Glomerular Filt Rate 102 ml/min (>60); GFR (African American) 123 ML/MIN (>60); Globulin 2.9 g/dL (1.3-3.2); Glucose 93 mg/dl (74-100); Potassium 3.6 mmoL/L (3.5-5.1); Sodium 138 mmol/L (136-145); Total Protein,Serum 6.9 g/dl (6.3-8.2)
[2023-08-05 02:29] LABS: HCG Qualitative, Serum Negative (Negative)
[2023-08-05 02:30] LABS: C-Reactive Protein 17.7 mg/L (0-4)
--- NOTE | 2023-08-05 02:36 | HMH.EDGENADL ---
Discharge Plan Disposition Patient Disposition: Home, Self-Care Condition: Good Prescriptions Prescriptions: New Xarelto 15 mg tablet 15 mg PO BID 21 Days Qty: 42 0RF No Action metoclopramide HCl 10 mg tablet PO cholecalciferol (vitamin D3) 1,250 mcg (50,000 unit) tablet 1,250 mcg PO WEEKLY Qty: 7 1RF levothyroxine 112 mcg tablet 112 mcg PO Ubrelvy 50 mg tablet 50 mg PO ONCE PRN folic acid 1 mg tablet 1 mg PO DAILY topiramate 100 mg tablet 100 mg PO DAILY Nexplanon 68 mg implant SUBDERMAL vilazodone [Viibryd] 10 mg tablet 10 mg PO DAILY Qty: 30 2RF Rx Instructions: must administer with a meal/food cholecalciferol (vitamin D3) 50 mcg (2,000 unit) capsule 50 mcg PO DAILY 30 Days Qty: 30 3RF lisdexamfetamine [Vyvanse] 30 mg capsule 30 mg PO DAILY Qty: 30 0RF Referrals Follow up/Referrals: Provider,Referral, MD [Primary Care Provider] - See instructions Activity Restrictions/Add. Instructions Additional Instructions/Restrictions: You were evaluated in the emergency department today. You tested positive for COVID-19. Please take Tylenol and ibuprofen at home as needed for pain and fever. Hydrate as much as possible. Your bedside DVT ultrasound here in the emergency department is reassuring, however you will be called to schedule a formal outpatient DVT ultrasound for further evaluation and management. In the meantime, we have prescribed you Xarelto, which is an anticoagulant. Please turkey picker this medication and take as prescribed. Follow-up with your primary care provider over the next week for reassessment. Return to the emergency department for any new or worsening symptoms. Clinical Impressions Clinical Impression: Chest pain, pleuritic, COVID-19, D-dimer, elevated Stand Alone Forms Stand Alone Forms: Work/School Release Instructions Patient Instructions: DI for Atypical Chest Pain, Rivaroxaban, DI for COVID-19 (Suspected or Confirmed ) Discharge ED Provider: Yuliana King General Adult HPI General Chief complaint: Chest Pain Stated complaint: chest pain Time Seen by Provider: 08/05/23 02:09 Mode of Arrival: Ambulatory Source of Information: Patient and Relative Limitations: No Limitations Description of Symptoms (Recalled from ER Triage Doc. by RN): Patient reports chest pain only with inspiration that started this morning. Patient has history of DVT a few years ago and as the day progressed became worried that she has a blood clot. Patient also has pain to the left lower extremity. Patient reports pain does not radiate and is 8/10 only with inspiration. History of Present Illness HPI narrative: This patient is a 27-year-old female with a history of MTHFR with multiple blood clots in the past presenting to the emergency department for evaluation with concern for pleuritic chest pain and left leg pain/swelling. 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 She became worried that she could have a blood clot. This morning, she woke up with pleuritic chest pain on the left side. It is nonradiating. She does also note that she has been coughing. Of note, she is not on any anticoagulation, though she does take folic acid for this. On medical record review, patient also has a history of migraines, ADHD, hypothyroidism, and anxiety. Related Data Home Medications Medication Instructions Recorded Confirmed etonogestrel 68 mg subdermal subdermal 06/28/19 07/10/23 implant (Nexplanon) metoclopramide HCl 10 mg tablet PO 07/10/20 07/10/23 folic acid 1 mg tablet 1 mg PO DAILY 04/03/23 07/10/23 levothyroxine 112 mcg tablet 112 mcg PO 04/03/23 07/10/23 topiramate 100 mg tablet 100 mg PO DAILY 04/03/23 07/10/23 ubrogepant 50 mg tablet (Ubrelvy) 50 mg PO ONCE PRN 04/03/23 07/10/23 Previous Rx's Medication Instructions Recorded chol
[2023-08-05 02:39] LABS: Troponin I < 0.01 ng/ml (0.00-0.034)
[2023-08-05 02:41] LABS: Influenza A, PCR Not Detected (NotDetected); Influenza B, PCR Not Detected (NotDetected)
[2023-08-05 02:44] LABS: T4 (Thyroxine) 11.1 ug/dl (5.53-11.0)
[2023-08-05 02:50] LABS: Erythrocyte Sedimentation Rate 21 mm/hr (0-20)
[2023-08-05 02:52] LABS: D-Dimer 1.02 ug/mL (0.0-0.5)
[2023-08-05 02:57] LABS: Thyroid Stimulating Hormone 2.42 uIU/mL (0.465-4.68)
[2023-08-05 03:04] LABS: Coronavirus 19, PCR Detected (NotDetected)
--- NOTE | 2023-08-05 03:21 | PC.NURSE ---
in room talking with patient.
[2023-08-05 05:06] LABS: Troponin I < 0.01 ng/ml (0.00-0.034)
== END 2023-08-05 05:18 | disposition home or self-care (01) ==
PROVIDERS: Emergency Provider Emergency Medicine
DX: U07.1 COVID-19 (principal); R07.81 Pleurodynia; R00.0 Tachycardia, unspecified; R79.89 Other specified abnormal findings of blood chemistry; E03.9 Hypothyroidism, unspecified; R91.8 Other nonspecific abnormal finding of lung field; F41.9 Anxiety disorder, unspecified; Z86.718 Personal history of other venous thrombosis and embolism
CPT/HCPCS: 71275; 80053; 84436; 84443; 84484; 84703; 85025; 85378; 85651; 86140; 87636; 93005; 96361; 96374; 96375; 99284; J0131; Q9967

== ENCOUNTER → 2023-08-05 15:36 | Outpatient (CLI) | payer BC, SELFPAY ==
--- NOTE | 2023-08-05 | CA_ITS ---
FINAL REPORT TECHNIQUE: Ultrasound images of the deep venous system were obtained from the left groin to the calf veins. 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 She noticed swelling and tightness in left calf 08/02/23. Patient states she has a history of DVT's. MTHFR disorder. She isn't currently on blood thinners. Morbid obesity. Elevated D-dimer. FINDINGS: The deep venous system is normally compressible. Normal flow is identified. IMPRESSION: No evidence of left lower extremity DVT. Reviewed, Interpreted and Dictated by Emilio Urias III, MD Transcribed by Jahaira Dick Authenticated and [facility]
== END ==
PROVIDERS: PCP Physician Assistant; Visit Provider Emergency Medicine
DX: M79.662 Pain in left lower leg (principal)
CPT/HCPCS: 93971

== ENCOUNTER 2023-08-05 16:14 | Emergency (ER) | payer BC, SELFPAY ==
[2023-08-05 16:17] VITALS: BP 143/93; PULSE 94; RESP 18; O2SAT 98; BMI 51.2
--- NOTE | 2023-08-05 16:17 | PC.NURSE ---
pt placed in triage room post DVT r/o doppler u/s
--- NOTE | 2023-08-05 16:22 | PC.NURSE ---
Dr. Marroquin at [facility] to evaluate pt
--- NOTE | 2023-08-05 16:22 | HMH.EDGENADL ---
Discharge Plan Disposition Patient Disposition: Home, Self-Care Prescriptions Prescriptions: No Action metoclopramide HCl 10 mg tablet PO cholecalciferol (vitamin D3) 1,250 mcg (50,000 unit) tablet 1,250 mcg PO WEEKLY Qty: 7 1RF levothyroxine 112 mcg tablet 112 mcg PO Ubrelvy 50 mg tablet 50 mg PO ONCE PRN folic acid 1 mg tablet 1 mg PO DAILY topiramate 100 mg tablet 100 mg PO DAILY Nexplanon 68 mg implant SUBDERMAL vilazodone [Viibryd] 10 mg tablet 10 mg PO DAILY Qty: 30 2RF Rx Instructions: must administer with a meal/food cholecalciferol (vitamin D3) 50 mcg (2,000 unit) capsule 50 mcg PO DAILY 30 Days Qty: 30 3RF lisdexamfetamine [Vyvanse] 30 mg capsule 30 mg PO DAILY Qty: 30 0RF Xarelto 15 mg tablet 15 mg PO BID 21 Days Qty: 42 0RF Referrals Follow up/Referrals: Delia Marley PA [Primary Care Provider] - See instructions Activity Restrictions/Add. Instructions Additional Instructions/Restrictions: At this time it was felt you are safe to be discharged home. If new or worsening symptoms please do not hesitate to return the emergency department. If symptoms persist please follow-up with your family doctor as you are able. Clinical Impressions Clinical Impression: Calf pain, SARS-CoV-2 positive Discharge ED Provider: Ken Marroquin General Adult HPI General Stated complaint: lower leg pain Time Seen by Provider: 08/05/23 16:16 History of Present Illness HPI narrative: Patient is a 27-year-old female past medical history of MTHFR mutation with multiple previous clots who presents for evaluation after her DVT duplex ultrasound. For full history please see Dr. King's note from earlier this morning. Patient has had no evolving symptoms since. Patient has not taken her first dose of Eliquis yet. Has been ambulatory. No other acute complaints at this time. Related Data Home Medications Medication Instructions Recorded Confirmed etonogestrel 68 mg subdermal subdermal 06/28/19 07/10/23 implant (Nexplanon) metoclopramide HCl 10 mg tablet PO 07/10/20 07/10/23 folic acid 1 mg tablet 1 mg PO DAILY 04/03/23 07/10/23 levothyroxine 112 mcg tablet 112 mcg PO 04/03/23 07/10/23 topiramate 100 mg tablet 100 mg PO DAILY 04/03/23 07/10/23 ubrogepant 50 mg tablet (Ubrelvy) 50 mg PO ONCE PRN 04/03/23 07/10/23 Previous Rx's Medication Instructions Recorded cholecalciferol (vitamin D3) 50 50 mcg PO DAILY 30 days #30 caps 07/26/21 mcg (2,000 unit) capsule cholecalciferol (vitamin D3) 1,250 1,250 mcg PO WEEKLY #7 tabs 04/14/22 mcg (50,000 unit) tablet vilazodone 10 mg tablet (Viibryd) 10 mg PO DAILY #30 tabs 07/10/23 lisdexamfetamine 30 mg capsule 30 mg PO DAILY #30 caps 07/11/23 (Vyvanse) rivaroxaban 15 mg tablet (Xarelto) 15 mg PO BID 21 days #42 tabs 08/05/23 Allergies Allergy/AdvReac Type Severity Reaction Status Date / Time amoxicillin [AMOXICILLIN] Allergy Unknown Verified 08/05/23 02:15 cefixime [From SUPRAX] Allergy Unknown Verified 08/05/23 02:15 latex [LATEX] Allergy Unknown Verified 08/05/23 02:15 shellfish derived Allergy Unknown RASH/ITCHIN Verified 08/05/23 02:15 [From SHELLFISH (FOOD/DRUG)] G shrimp [SHRIMP] Allergy Unknown Verified 08/05/23 02:15 Penicillins Allergy Verified 08/05/23 02:15 PFS PFS Disclaimer: The information contained in this section may have been updated after the patient was seen, as this information can be updated by other users. Medical History Anxiety Hx of deep venous thrombosis Hypothyroidism Lung nodules Migraine Screen for STD (sexually transmitted disease) Surgical History History of cholecystectomy History of tonsillectomy History of tympanostomy tube placement Social History Smoking Statu
[2023-08-05 16:42] VITALS: BP 140/90; PULSE 90; RESP 18; TEMP 36.6; O2SAT 98
== END 2023-08-05 16:43 | disposition home or self-care (01) ==
LOC: ER 16:37
PROVIDERS: Emergency Provider Emergency Medicine; PCP Physician Assistant
DX: U07.1 COVID-19 (principal); Z86.718 Personal history of other venous thrombosis and embolism
CPT/HCPCS: 99282

== ENCOUNTER 2023-09-10 18:43 | Emergency (ER) | payer BC, SELFPAY ==
[2023-09-10 18:50] VITALS: BP 136/94; PULSE 87; RESP 19; TEMP 36.7; O2SAT 98; BMI 48.9
[2023-09-10 19:06] VITALS: BP 136/94; PULSE 87; RESP 19; TEMP 36.7; O2SAT 98
--- NOTE | 2023-09-10 19:09 | EXP.UTC ---
Discharge Plan Disposition Patient Disposition: Home, Self-Care Condition: Good Prescriptions Prescriptions: New guaifenesin [Mucinex] 600 mg tablet extended release 12hr 1,200 mg PO BID PRN (Reason: cough) Qty: 20 0RF azithromycin [Zithromax Z-Mateo] 250 mg tablet See Rx Instructions .ROUTE .COMPLEX 5 Days Qty: 6 0RF Rx Instructions: For 250 mg dose pack: take 500 mg today (day 1), then 250 mg for 4 days (days 2-5) prednisone [prednisone] 20 mg tablet 20 mg PO BID 5 Days Qty: 10 0RF No Action levothyroxine 112 mcg tablet 112 mcg PO DAILY topiramate 100 mg tablet 100 mg PO DAILY lisdexamfetamine 40 mg capsule 40 mg PO DAILY Patient Comments: 40 mg orally daily Referrals Follow up/Referrals: Delia Marley PA [Primary Care Provider] - See instructions Activity Restrictions/Add. Instructions Additional Instructions/Restrictions: Start antibiotic today. Be sure to complete entire prescription even if feeling better Monitor temp. Tylenol every 4 hours as needed and / or ibuprofen every 6 hours as needed ( As long as your primary care physician has told you that it ok to take both. For fever/aches/pains ER if no less than 101 despite Tylenol or Motrin Humidifier/vaporizer or hot steamy shower Mucinex for your cough Be sure to drink lots of water. *Start steroid today. Helps with inflammation therefore, cough and wheezing. Follow directions on the package. Reviewed side effects. Patient reports taking them before. Follow up IMMEDIATELY for new or worsening of symptoms OR no noticeable improvement over the next 48-72 hours. 911 immediately for any life threatening symptoms such as chest pain or difficulty breathing Clinical Impressions Clinical Impression: Bronchitis Stand Alone Forms Stand Alone Forms: Work/School Release Instructions Patient Instructions: Acute Bronchitis, DI for Acute Bronchitis, Azithromycin, Cough Discharge ED Provider: Yaquelin Ocasio [facility] General Stated complaint: cough, chest congestion Mode of Arrival: Ambulatory Source of Information: Patient Limitations: No Limitations Time Seen by Provider: 09/10/23 19:11 Description of Symptoms (Recalled from Triage Doc. by RN): PATIENT C/O COUGH AND CHEST CONGESTION SINCE MONDAY HEENT Symptoms (Recalled from RN notes): No Resp Symptoms (Recalled from RN notes): Yes Skin Symptoms (Recalled from RN notes): No MS Symptoms (Recalled from RN notes): No Functional Status (Recalled from RN notes): WNL History of Present Illness Provider Complaint: Patient states that for the last week she has been having cough and chest congestion that keeps getting worse States that her cough is deep and feels like it does when she gets bronchitis sometimes States that at times she is coughing up some mucous and worried that it may turn into pneumonia Related Data Home Medications Medication Instructions Recorded Confirmed levothyroxine 112 mcg tablet 112 mcg PO DAILY 04/03/23 09/10/23 topiramate 100 mg tablet 100 mg PO DAILY 04/03/23 09/10/23 lisdexamfetamine 40 mg capsule 40 mg PO DAILY 09/10/23 09/10/23 Previous Rx's Medication Instructions Recorded azithromycin 250 mg tablet See Rx Instructions PO .COMPLEX 5 09/10/23 (Zithromax Z-Mateo) days #6 tabs guaifenesin 600 mg tablet, 1,200 mg PO BID PRN cough #20 tabs 09/10/23 extended release 12 hr (Mucinex) prednisone 20 mg tablet 20 mg PO BID 5 days #10 tabs 09/10/23 Allergies Allergy/AdvReac Type Severity Reaction Status Date / Time amoxicillin [AMOXICILLIN] Allergy Unknown Verified 08/10/23 10:50 cefixime [From SUPRAX] Allergy Unknown Verified 08/10/23 10:50 latex [LATEX] Allergy Unknown Verified 08/10/23 10:50 shellfish derived Allergy Unknown RASH/ITCHIN Verified 08/10/23 10:50 [From SHELLFISH (FOOD/DRUG)] G shrimp [SHRIMP] Allergy Unknown Verified 08/10/23 10:50 Penicillins Allergy Verified 08/10
== END 2023-09-10 19:21 | disposition home or self-care (01) ==
PROVIDERS: Emergency Provider Nurse Practitioner; PCP Physician Assistant
DX: J20.9 Acute bronchitis, unspecified (principal); R05.8 Other specified cough; R09.89 Other specified symptoms and signs involving the circulatory and respiratory systems; E03.9 Hypothyroidism, unspecified
CPT/HCPCS: 99212; 99214; G0463

== ENCOUNTER 2023-10-25 17:54 | Outpatient (CLI) | payer BC, SELFPAY ==
[2023-10-25 18:47] LABS: Amphetamine/Metha Screen,Urine Positive ng/ml (<1000); Barbiturates Screen,Urine Negative ng/ml (<200); Benzodiazepines Screen,Urine Negative ng/ml (<200); Cannabinoid Screen,Urine Negative ng/ml (<50); Cocaine Screen,Urine Negative ng/ml (<300); Methadone Screen,Urine Negative ng/ml (<300); Opiate Screen,Urine Negative ng/ml (<300); Phencyclidine Screen,Urine Negative ng/ml (<25)
== END 2023-10-25 23:59 ==
LOC: LAB.DROPOF 17:54
PROVIDERS: PCP Physician Assistant; Visit Provider Physician Assistant
DX: Z79.899 Other long term (current) drug therapy (principal)
CPT/HCPCS: 80307

== ENCOUNTER 2023-11-02 17:05 | Emergency (ER) | payer BC, SELFPAY ==
[2023-11-02 17:40] VITALS: BP 140/93; PULSE 90; RESP 18; TEMP 36.8; O2SAT 99; BMI 51.5
--- NOTE | 2023-11-02 18:00 | EXP.UTC ---
Discharge Plan Disposition Patient Disposition: Home, Self-Care Condition: Good Prescriptions Prescriptions: No Action levothyroxine 112 mcg tablet 112 mcg PO DAILY topiramate 100 mg tablet 100 mg PO DAILY vilazodone 10 mg tablet 10 mg PO DAILY folic acid 1 mg tablet 1 mg PO DAILY lisdexamfetamine 40 mg capsule 40 mg PO DAILY 30 Days Qty: 30 0RF Referrals Follow up/Referrals: Delia Marley PA [Primary Care Provider] - See instructions Activity Restrictions/Add. Instructions Additional Instructions/Restrictions: Go home and rest. It would be best if you rested tomorrow too. Resume your normal regimen for migraine treatment. Follow up with your regular doctor. GO TO THE ER FOR ANY WORSENING SYMPTOMS OR CONCERN, ESPECIALLY BOWEL OR BLADDER ISSUES, SADDLE AREA NUMBNESS, FEVER, ETC Clinical Impressions Clinical Impression: Migraine Stand Alone Forms Stand Alone Forms: Work/School Release Instructions Patient Instructions: Migraine -- Adult, Promethazine, Ketorolac Injection, Dexamethasone Injection Discharge ED Provider: Jone Vincent [facility] General Stated complaint: light, sound, sensitivity, nausea Time Seen by Provider: 11/02/23 18:00 History of Present Illness Provider Complaint: She states that she has had migraine headache. She has a history of migraines. She states that this feels like her normal migraine headache symptoms she just hasn't been able to get them better with her normal migraine treatment. Related Data Home Medications Medication Instructions Recorded Confirmed levothyroxine 112 mcg tablet 112 mcg PO DAILY 04/03/23 09/26/23 topiramate 100 mg tablet 100 mg PO DAILY 04/03/23 09/26/23 folic acid 1 mg tablet 1 mg PO DAILY 09/26/23 09/26/23 vilazodone 10 mg tablet 10 mg PO DAILY 09/26/23 09/26/23 Previous Rx's Medication Instructions Recorded lisdexamfetamine 40 mg capsule 40 mg PO DAILY 30 days #30 caps 10/27/23 Allergies Allergy/AdvReac Type Severity Reaction Status Date / Time amoxicillin [AMOXICILLIN] Allergy Unknown Verified 11/02/23 18:12 cefixime [From SUPRAX] Allergy Unknown Verified 11/02/23 18:12 latex [LATEX] Allergy Unknown Verified 11/02/23 18:12 shellfish derived Allergy Unknown RASH/ITCHIN Verified 11/02/23 18:12 [From SHELLFISH (FOOD/DRUG)] G shrimp [SHRIMP] Allergy Unknown Verified 11/02/23 18:12 Penicillins Allergy Verified 11/02/23 18:12 [facility] Disclaimer: The information contained in this section may have been updated after the patient was seen, as this information can be updated by other users. 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 ROS Obtained: Yes All systems reviewed & no additional complaints except as documented Constitutional Constitutional: Denies chills and Denies fever(s) Eyes Eyes: Denies eye discharge ENT Ears, Nose, Mouth, and Throat: Denies dizziness, Denies otalgia and Denies sore throat Cardiovascular Cardiovascular: Denies chest pain Respiratory Respiratory: Denies shortness of breath, Denies chest congestion, Denies cough, Denies stridor and Denies wheezing Gastrointestinal Gastrointestingal: Denies nausea or vomiting Musculoskeletal Musculoskeletal: Reports system reviewed and no additional complaints, except as documented and Denies arthralgias Integumentary/Breasts Skin/Breast: Denies rash Neurologic Neurologic: Reports as per HPI, Denies dizziness and Denies paresthesias Allergic/Immunologic Allergic/Immunologic: Denies wheezing Physical Exam General General appearance: alert and in no apparent distress Head Head exam: atraumatic, normocephalic and normal inspection Eye Eye exam: Present normal appearance, PERRL and EOMI ENT ENT exam: Present normal exam, normal oropharynx, mucous membranes moist, TM's normal bilaterally and normal external ear exam Neck Neck exam: Present normal inspection, full ROM and trachea midline; Absent meningismus or lymphadenopathy Chest Chest inspection: Present normal inspection and symmetric chest wall rise; Absent tenderness Respiratory Respiratory exam: Present normal lung sounds bilaterally; Absent respiratory distress Cardiovascular Cardiovascular exam: Present regular rate and normal rhythm; Absent JVD Abdominal Exam Abdominal exam: Present soft and normal bowel sounds; Absent distention, tenderness or guarding Extremities Exam Extremities exam: Present normal inspection, full ROM and normal capillary refill; Absent calf tenderness Back Exam Back exam: Present normal inspection; Absent tenderness Neurological Exam Neurological exam: Present alert, oriented X3, CN II-XII intact, normal gait and reflexes normal; Absent motor sensory deficit Expanded Neurological Exam Speech: Present fluid speech Cranial nerves: Normal: EOM function (II, III, IV, ), facial sensation (V), facial palsy (VII), gag reflex (IX), spinal accessory function (XI) and tongue deviation (XII) Cerebellar function: Normal: finger to nose Cerebellar function: normal gait Motor strength - LUE: 5/5 Motor strength - RUE: 5/5 Motor strength - LLE: 5/5 Motor strength - RLE: 5/5 Upper motor neuron exam: Normal: [place] neglect and sensory extinction Sensory exam upper extremity: Normal: light touch and 2 point discrimination Sensory exam lower extremity: Normal: light touch and 2 point discrimination DTR: 2+: biceps (L), biceps (R), patellar (L), patellar (R), Achilles tendon (L) and Achilles tendon (R) Psychiatric Psychiatric exam: Present normal affect and normal mood Skin Skin exam: Present warm, dry, intact and normal color Lymphatic Lymphatic Findings: no adenopathy Medical Decision Making Medical Records Medical records reviewed: No I reviewed the patient's medical records. Robin Inquiry Pt receiving controlled substance: No
[2023-11-02] MEDS: PROMETHAZINE HCL 25MG/ML 1ML VIAL 25 MG IM (18:15)
[2023-11-02] MEDS: DEXAMETHASONE 4MG/ML 1ML VIAL 8 MG IM (18:15)
[2023-11-02] MEDS: KETOROLAC 60MG/2ML VIAL 60 MG IM (18:16)
[2023-11-02 18:49] VITALS: BP 140/93; PULSE 90; RESP 18; TEMP 36.8; O2SAT 99
== END 2023-11-02 18:49 | disposition home or self-care (01) ==
PROVIDERS: Emergency Provider Nurse Practitioner Family; PCP Physician Assistant
DX: G43.909 Migraine, unspecified, not intractable, without status migrainosus (principal); E03.9 Hypothyroidism, unspecified
CPT/HCPCS: 96372; 99212; 99214; G0463

== ENCOUNTER 2024-01-22 22:57 | Outpatient (CLI) | payer BC, SELFPAY ==
[2024-01-22 19:15] LABS: Basophils % 0.6 % (0.1-2.0); Eosinophils # 0.1 K/mm3 (0.0-0.4); Eosinophils % 1.6 % (0.1-12.0); Hematocrit 43.1 % (37.0-47.0); Lymphocytes # 1.5 K/mm3 (0.7-4.5); Mean Corpuscular HGB Conc 32.5 g/dL (31.8-35.4); Mean Corpuscular Volume 104.5 fl (81-99); Mean Platelet Volume 9.9 fl (7.4-10.4); Monocytes # 0.3 K/mm3 (0.1-1.0); Monocytes % 4.8 % (1.7-9.3); Neutrophils # 4.5 K/mm3 (1.8-7.8); Neutrophils % 69.9 % (37.0-80.0); Platelet Count 280 K/mm3 (142-424); Red Blood Count 4.12 M/mm3 (4.20-5.40); Red Cell Distribution Width 14.1 % (11.5-17.5); White Blood Count 6.5 K/mm3 (4.8-10.8)
[2024-01-22 19:27] LABS: Alanine Aminotransferase 26 U/L (12-78); Albumin Level 3.9 g/dl (3.5-5.0); Albumin/Globulin Ratio 1.6 (1.1-1.8); Alkaline Phosphatase 64 U/L (38-126); Anion Gap 11.6 mEq/L (5-15); Aspartate Amino Transferase 26 U/L (14-36); Bilirubin,Total 0.7 mg/dl (0.2-1.3); Blood Urea Nitrogen 7 mg/dl (7-17); Carbon Dioxide 22 mmol/L (22.0-30.0); Chloride 108 mmol/L (98-107); Estimated Glomerular Filt Rate 101 ml/min (>60); GFR (African American) 122 ML/MIN (>60); Globulin 2.4 g/dL (1.3-3.2); Glucose 109 mg/dl (74-100); Potassium 4.6 mmoL/L (3.5-5.1); Sodium 137 mmol/L (136-145); Total Protein,Serum 6.3 g/dl (6.3-8.2)
[2024-01-22 19:44] LABS: 25-OH Vitamin D, Total 19.9 ng/mL (30-100)
[2024-01-22 20:00] LABS: Thyroid Stimulating Hormone 2.86 uIU/mL (0.465-4.68)
[2024-01-22 20:19] LABS: Vitamin B12 199 pg/mL (239-931)
[2024-01-23 10:20] LABS: Hemoglobin A1C 5.1 % (4.0-6.0)
[2024-01-24 08:30] LABS: FSH 6.5 mIU/mL (.); Progesterone 0.3 ng/mL (.)
[2024-01-27 01:18] LABS: Estrogen 117 pg/mL (.)
== END 2024-01-22 23:59 | disposition home or self-care (01) ==
LOC: LAB.DROPOF 22:57
PROVIDERS: PCP Physician Assistant; Visit Provider Physician Assistant
DX: E03.9 Hypothyroidism, unspecified (principal); R73.09 Other abnormal glucose; E53.8 Deficiency of other specified B group vitamins; E55.9 Vitamin D deficiency, unspecified; Z79.899 Other long term (current) drug therapy
CPT/HCPCS: 80053; 82306; 82607; 82672; 83001; 83036; 84144; 84443; 85025

== ENCOUNTER 2024-04-15 11:38 | Emergency (ER) | payer BC, SELFPAY ==
[2024-04-15 11:50] VITALS: BP 154/104; PULSE 93; RESP 18; TEMP 36.9; O2SAT 100; BMI 51.5
--- NOTE | 2024-04-15 12:01 | ED_ITS ---
Discharge Plan Disposition Patient Disposition: Home, Self-Care Condition: Good Prescriptions Prescriptions: New ondansetron 4 mg tablet,disintegrating 4 mg PO Q8H 4 Days Qty: 12 0RF No Action levothyroxine 112 mcg tablet 112 mcg PO DAILY topiramate 100 mg tablet 100 mg PO DAILY Ubrelvy 100 mg tablet 100 mg PO PRN nortriptyline 10 mg capsule 10 mg PO trazodone 50 mg tablet 50 mg PO QHS Qty: 90 0RF lisdexamfetamine [Vyvanse] 60 mg capsule 60 mg PO DAILY Qty: 30 0RF lisdexamfetamine [Vyvanse] 60 mg capsule 60 mg PO DAILY Qty: 30 0RF vilazodone 10 mg tablet 10 mg PO DAILY folic acid 1 mg tablet 1 mg PO DAILY cholecalciferol (vitamin D3) 50 mcg (2,000 unit) capsule 50 mcg PO DAILY Qty: 90 3RF ergocalciferol (vitamin D2) 1,250 mcg (50,000 unit) capsule 1,250 mcg PO WEEKLY Qty: 14 3RF (DME) BD Integra Syringe 3 mL 25 gauge x 5/8 syringe See Rx Instructions .ROUTE .MEDSUPPLY Qty: 100 1RF Rx Instructions: To use for B-12 injection cyanocobalamin (vitamin B-12) 1,000 mcg/mL solution 1,000 mcg IM QMONTH Qty: 100 2RF Rx Instructions: Pt to inject 1ml daily x7 days. Pt to inject 1ml weekly x4 weeks. Pt to inject 1ml monthly. lisdexamfetamine [Vyvanse] 60 mg capsule 60 mg PO DAILY Qty: 30 0RF Referrals Follow up/Referrals: Delia Marley PA [Primary Care Provider] - See instructions Activity Restrictions/Add. Instructions Additional Instructions/Restrictions: You may taken oral Zofran 8 hours after injection. Bananas, rice, applesauce, and toast when you start eating again. Increase fluids even if nauseated. If symptoms persist or worsen, return to clinic or follow up with PCP. Clinical Impressions Clinical Impression: Nausea in adult patient Stand Alone Forms Stand Alone Forms: Work/School Release Instructions Patient Instructions: Nausea (Alternative Therapy), DI for Nausea -- Adult Discharge ED Provider: Maris Randle [facility] [place] General Stated complaint: nausea, abd pain Mode of Arrival: Ambulatory Source of Information: Patient and Parent(s) Limitations: No Limitations Time Seen by Provider: 04/15/24 11:53 Description of Symptoms (Recalled from Triage Doc. by RN): PATIENT C/O STOMACH PAIN, HEADACHE, NAUSEA AND DIZZINESS THAT STARTED THIS MORNING HEENT Symptoms (Recalled from RN notes): Yes Resp Symptoms (Recalled from RN notes): No Skin Symptoms (Recalled from RN notes): No MS Symptoms (Recalled from RN notes): No Functional Status (Recalled from RN notes): WNL History of Present Illness Provider Complaint: Pt reports that last night around 8 pm she had a migraine and took her Ubrelvy medication around 9-10pm. She reports that about 3 hours later her headache was better but she became very nauseated and her stomach was cramping. She states that she has continued to be nauseated today. Related Data Home Medications Medication Instructions Recorded Confirmed levothyroxine 112 mcg tablet 112 mcg PO DAILY 04/03/23 01/22/24 topiramate 100 mg tablet 100 mg PO DAILY 04/03/23 01/22/24 folic acid 1 mg tablet 1 mg PO DAILY 09/26/23 01/22/24 vilazodone 10 mg tablet 10 mg PO DAILY 09/26/23 01/22/24 nortriptyline 10 mg capsule 10 mg PO 12/19/23 01/22/24 ubrogepant 100 mg tablet (Ubrelvy) 100 mg PO PRN 12/19/23 01/22/24 Previous Rx's Medication Instructions Recorded trazodone 50 mg tablet 50 mg PO QHS #90 tabs 01/22/24 lisdexamfetamine 60 mg capsule 60 mg PO DAILY #30 caps 01/23/24 (Vyvanse) lisdexamfetamine 60 mg capsule 60 mg PO DAILY #30 caps 01/23/24 (Vyvanse) cholecalciferol (vitamin D3) 50 50 mcg PO DAILY #90 caps 01/24/24 mcg (2,000 unit) capsule ergocalciferol (vitamin D2) 1,250 1,250 mcg PO WEEKLY #14 caps 01/24/24 mcg (50,000 unit) capsule syringe with needle, safety 3 mL #100 ea 01/24/24 25 gauge x 5/8 (BD Integra Syringe) cyanocobalamin (vitamin B-12) 1,000 mcg IM QMONTH Vitamin B-12 01/30/24 1,000 mcg/mL injection solution Deficiency #100 mL lisdexamfetamine 60 mg capsule 60 mg PO DAILY #30 caps 04/08/24 (Vyvanse) ondansetron 4 mg disintegrating 4 mg PO Q8H 4 days #12 tabs 04/15/24 tablet Allergies Allergy/AdvReac Type Severity Reaction Status Date / Time amoxicillin [AMOXICILLIN] Allergy Unknown Verified 01/22/24 14:38 cefixime [From SUPRAX] Allergy Unknown Verified 01/22/24 14:38 latex [LATEX] Allergy Unknown Verified 01/22/24 14:38 shellfish derived Allergy Unknown RASH/ITCHIN Verified 01/22/24 14:38 [From SHELLFISH (FOOD/DRUG)] G shrimp [SHRIMP] Allergy Unknown Verified 01/22/24 14:38 Penicillins Allergy Verified 01/22/24 14:38 Worker's Comp Is this a Worker's Comp case?: No [facility] Disclaimer: The information contained in this section may have been updated after the patient was seen, as this information can be updated by other users. 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 ROS Obtained: Yes All systems reviewed & no additional complaints except as documented Constitutional Constitutional: Reports system reviewed and no additional complaints, except as documented, Reports headache(s) and Reports malaise Eyes Eyes: Reports system reviewed and no additional complaints, except as documented ENT Ears, Nose, Mouth, and Throat: Reports system reviewed and no additional complaints, except as documented and Reports headache(s) Cardiovascular Cardiovascular: Reports system reviewed and no additional complaints, except as documented Respiratory Respiratory: Reports system reviewed and no additional complaints, except as documented Gastrointestinal Gastrointestingal: Reports system reviewed and no additional complaints, except as documented and nausea Genitourinary Female Genitourinary: Reports system reviewed and no additional complaints, except as documented Musculoskeletal Musculoskeletal: Reports system reviewed and no additional complaints, except as documented Integumentary/Breasts Skin/Breast: Reports system reviewed and no additional complaints, except as documented Neurologic Neurologic: Reports system reviewed and no additional complaints, except as documented and Reports headache(s) Endocrine Endocrine: Reports system reviewed and no additional complaints, except as documented Hematologic/Lymphatic Henatologic/Lymphatic: Reports system reviewed and no additional complaints, except as documented Allergic/Immunologic Allergic/Immunologic: Reports system reviewed and no additional complaints, except as documented Physical Exam General General appearance: alert Comment: ill appearing Head Head exam: atraumatic and normocephalic Eye Eye exam: Present normal appearance ENT ENT exam: Present normal exam Neck Neck exam: Present normal inspection; Absent lymphadenopathy Chest Chest inspection: Present normal inspection and symmetric chest wall rise Respiratory Respiratory exam: Present normal lung sounds bilaterally Cardiovascular Cardiovascular exam: Present regular rate, normal rhythm and normal heart sounds Abdominal Exam Abdominal exam: Present soft, tenderness and normal bowel sounds Abdominal tenderness: Present epigastrium Extremities Exam Extremities exam: Present normal inspection Back Exam Back exam: Present normal inspection Neurological Exam Neurological exam: Present alert and oriented X3 Psychiatric Psychiatric exam: Present normal affect and normal mood Skin Skin exam: Present warm, dry and intact Lymphatic Lymphatic Findings: no adenopathy Medical Decision Making Robin Inquiry Pt receiving controlled substance: No Robin was queried for this patient: No Vital Signs: 04/15/24 11:50 Temperature 98.5 F Temperature Source Oral Pulse Rate [Left Brachial] 93 H Respiratory Rate 18 Blood Pressure [Left Arm] 154/104 H Blood Pressure Mean [Left Arm] 120 Blood Pressure Source [Left Arm] Automatic Cuff Blood Pressure Position [Left Arm] Sitting 02 Sat by Pulse Oximetry 100 Oxygen Delivery Method Room Air
[2024-04-15] MEDS: ONDANSETRON 4MG/2ML VIAL 4 MG IM (12:15)
[2024-04-15 12:19] VITALS: BP 154/104; PULSE 93; RESP 18; TEMP 36.9; O2SAT 100
== END 2024-04-15 12:25 | disposition home or self-care (01) ==
PROVIDERS: Emergency Provider Nurse Practitioner Family; PCP Physician Assistant
DX: R10.816 Epigastric abdominal tenderness (principal); R11.0 Nausea
CPT/HCPCS: 96372; 99212; 99214; G0463; J2405